=== PATIENT | male | born 1980 | race African-American/Black ===

== ENCOUNTER 2017-11-14 19:12 | Emergency (ER) | payer OTHER, SELFPAY ==
--- NOTE | 2017-11-14 21:33 | ER ---
Nurse's Notes [facility] Name: Avila Marshall Age: 37 yrs Sex: Male : 1980 Arrival Date: 11/14/2017 Time: 19:15 Bed 16 Private MD: Diagnosis: Hiccough Presentation: 11/14 19:29 Presenting complaint: Patient states: Hiccups for 4 days. Transition of care: patient aj was not received from another setting of care. Onset of symptoms was November 10, 2017. Care prior to arrival: None. 19:29 Method Of Arrival: Ambulatory 19:29 Acuity: JORGE 4 20:19 Initial Sepsis Screen: Does the patient meet any 2 criteria? No. Patient's initial bs1 sepsis screen is negative. Does the patient have a suspected source of infection? No. Patient's initial sepsis screen is negative. Triage Assessment: 19:30 General: Appears in no apparent distress. uncomfortable, Behavior is calm, cooperative, aj appropriate for age. Pain: Denies pain. Neuro: Level of Consciousness is awake, alert, obeys commands, Oriented to person, place, time, situation, Appropriate for age. Respiratory: Airway is patent Respiratory effort is even, unlabored, Respiratory pattern is regular, symmetrical. Derm: Skin is intact, is healthy with good turgor, Skin is pink, warm \T\ dry. normal. Historical: - Allergies: 19:30 No Known Allergies; aj - Home Meds: 19:30 None [Active]; aj - PMHx: 19:30 None; aj - PSHx: 19:30 None; aj - Immunization history:: Adult Immunizations up to date. - Social history:: Smoking status: Patient uses tobacco products, smokes one-half pack cigarettes per day. Screenin:19 Abuse screen: Denies threats or abuse. Denies injuries from another. Nutritional bs1 screening: No deficits noted. Tuberculosis screening: No symptoms or risk factors identified. Fall Risk None identified. Assessment: 20:00 General: Appears in no apparent distress. uncomfortable, Behavior is calm, cooperative, bs1 appropriate for age. Pain: Denies pain. Neuro: Level of Consciousness is awake, alert, obeys commands, Oriented to person, place, time, situation, Appropriate for age Rubber Trimmer are equal bilaterally. Cardiovascular: Denies chest pain, palpitations, shortness of breath, Heart tones S1 S2 present Capillary refill < 3 seconds Patient's skin is warm and dry. Respiratory: Airway is patent Trachea midline Respiratory effort is even, unlabored, Respiratory pattern is regular, symmetrical, Breath sounds are clear bilaterally. GI: Abdomen is round Bowel sounds present X 4 quads. Reports nausea, generalized abdominal pain due to continuous hiccups. : No deficits noted. No signs and/or symptoms were reported regarding the genitourinary system. EENT: No deficits noted. No signs and/or symptoms were reported regarding the EENT system. Derm: Skin is intact, Skin is pink, warm \T\ dry. Musculoskeletal: Circulation, motion, and sensation intact. Capillary refill < 3 seconds, Range of motion: intact in all extremities. 21:00 Reassessment: Patient appears in no apparent distress at this time. No changes from bs1 previously documented assessment. Patient and/or family updated on plan of care and expected duration. Pain level reassessed. Patient is alert, oriented x 3, equal unlabored respirations, skin warm/dry/pink. Reassessment: Patient still c/o continuous hiccups. 22:05 Reassessment: Patient appears in no apparent distress at this time. Patient and/or bs1 family updated on plan of care and expected duration. Pain level reassessed. Patient is alert, oriented x 3, equal unlabored respirations, skin warm/dry/pink. Patient received baclofen/chlopromezine, patient being discharged, informed patient that he will stay for 15 more minutes to assess for any medication reaction prior to discharge. Vital Signs: 19:30 BP 156 / 86; Pulse 86; Resp 22; Temp 97.6; Pulse Ox 99% on R/A; Weight 134.26 kg; aj Height 6 ft. 6 in. (198.12 cm); 20:15 BP 144 / 76; Pulse 79; Resp 15; Pulse Ox 97% on R/A; bs1 21:15 BP 138 / 85; Pulse 86; Resp 16; Pulse Ox 97% on R/A; Pain 0/10; bs1 22:13 BP 140 / 90; Pulse 66; Resp 17; Temp 98(O); Pulse Ox 99% on R/A; bs1 19:30 Body Mass Index 34.21 (134.26 kg, 198.12 cm) ED Course: 19:15 Patient arrived in ED. am2 19:30 Triage completed. aj 19:30 Arm band placed on right wrist. Patient placed in an exam room. aj 20:08 Alecia Fan, RN is Primary Nurse. bs1 20:19 No provider procedures requiring assistance completed. bs1 20:20 Patient has correct armband on for positive identification. Bed in low position. Call bs1 light in reach. Side rails up X 1. Pulse ox on. NIBP on. 20:32 Dom Boyd PA is PHCP. jr8 20:32 Jamison Gamez MD is Attending Physician. jr8 22:14 Patient did not have IV access during this emergency room visit. bs1 Administered Medications: 21:46 Not Given (change in dose): chlorproMAZINE 25 mg PO once fc 22:04 Drug: Baclofen 10 mg Route: PO; bs1 22:15 Follow up: Response: No adverse reaction bs1 22:04 Drug: chlorproMAZINE 30 mg Route: PO; bs1 22:14 Follow up: Response: No adverse reaction bs1 Outcome: 21:33 Discharge ordered by . jr8 22:07 Condition: stable bs1 22:13 Discharged to home ambulatory. bs1 22:13 Discharge instructions given to patient, Instructed on discharge instructions, follow up and referral plans. medication usage, Demonstrated understanding of instructions, follow-up care, medications, Prescriptions given X 1. 22:22 Patient left the ED. bs1 Signatures: Maribell Fang RN RN Dom Boyd PA PA jr8 Maribell Quiroz am Alecia Fan RN RN bs1 Julianne Sheridan RN Corrections: (The following items were deleted from the chart) 19:30 19:29 Acuity: JORGE 5 aj
--- NOTE | 2017-11-14 21:33 | EDPHYS ---
Physician Documentation [facility] Name: Avila Marshall Age: 37 yrs Sex: Male : 1980 Arrival Date: 11/14/2017 Time: 19:15 Bed 16 Private MD: ED Physician Jamison Gamez HPI: 11/14 21:29 This 37 yrs old Black Male presents to ER via Ambulatory with complaints of Hiccups x4 jr8 days. 21:29 Patient stated that he has had persistent hiccups for the past 4 days. Effecting his jr8 sleep and work. Cannot get rid of them . Severity of symptoms: At their worst the symptoms were moderate in the emergency department the symptoms are unchanged. The patient has not experienced similar symptoms in the past. The patient has not recently seen a physician. Historical: - Allergies: 19:30 No Known Allergies; aj - Home Meds: 19:30 None [Active]; aj - PMHx: 19:30 None; aj - PSHx: 19:30 None; aj - Immunization history:: Adult Immunizations up to date. - Social history:: Smoking status: Patient uses tobacco products, smokes one-half pack cigarettes per day. ROS: 21:29 Eyes: Negative for injury, pain, redness, and discharge, ENT: Negative for injury, jr8 pain, and discharge, Neck: Negative for injury, pain, and swelling, Cardiovascular: Negative for chest pain, palpitations, and edema, Respiratory: Negative for shortness of breath, cough, wheezing, and pleuritic chest pain, Abdomen/GI: Negative for abdominal pain, nausea, vomiting, diarrhea, and constipation, Back: Negative for injury and pain, MS/Extremity: Negative for injury and deformity, Skin: Negative for injury, rash, and discoloration, Neuro: Negative for headache, weakness, numbness, tingling, and seizure. Exam: 21:29 Eyes: Pupils equal round and reactive to light, extra-ocular motions intact. Lids and jr8 lashes normal. Conjunctiva and sclera are non-icteric and not injected. Cornea within normal limits. Periorbital areas with no swelling, redness, or edema. ENT: Nares patent. No nasal discharge, no septal abnormalities noted. Tympanic membranes are normal and external auditory canals are clear. Oropharynx with no redness, swelling, or masses, exudates, or evidence of obstruction, uvula midline. Mucous membranes moist. Neck: Trachea midline, no thyromegaly or masses palpated, and no cervical lymphadenopathy. Supple, full range of motion without nuchal rigidity, or vertebral point tenderness. No Meningismus. Cardiovascular: Regular rate and rhythm with a normal S1 and S2. No gallops, murmurs, or rubs. Normal PMI, no JVD. No pulse deficits. Respiratory: Lungs have equal breath sounds bilaterally, clear to auscultation and percussion. No rales, rhonchi or wheezes noted. No increased work of breathing, no retractions or nasal flaring. Abdomen/GI: Soft, non-tender, with normal bowel sounds. No distension or tympany. No guarding or rebound. No evidence of tenderness throughout. Back: No spinal tenderness. No costovertebral tenderness. Full range of motion. Skin: Warm, dry with normal turgor. Normal color with no rashes, no lesions, and no evidence of cellulitis. MS/ Extremity: Pulses equal, no cyanosis. Neurovascular intact. Full, normal range of motion. Neuro: Awake and alert, GCS 15, oriented to person, place, time, and situation. Cranial nerves II-XII grossly intact. Motor strength 5/5 in all extremities. Sensory grossly intact. Cerebellar exam normal. Normal gait. Vital Signs: 19:30 BP 156 / 86; Pulse 86; Resp 22; Temp 97.6; Pulse Ox 99% on R/A; Weight 134.26 kg; aj Height 6 ft. 6 in. (198.12 cm); 20:15 BP 144 / 76; Pulse 79; Resp 15; Pulse Ox 97% on R/A; bs1 21:15 BP 138 / 85; Pulse 86; Resp 16; Pulse Ox 97% on R/A; Pain 0/10; bs1 22:13 BP 140 / 90; Pulse 66; Resp 17; Temp 98(O); Pulse Ox 99% on R/A; bs1 19:30 Body Mass Index 34.21 (134.26 kg, 198.12 cm) aj MDM: 20:32 Patient medically screened. jr8 21:30 Data reviewed: vital signs, nurses notes, and as a result, I will discharge patient. jr8 Data interpreted: Pulse oximetry: on room air is 97 %. Interpretation: normal. Counseling: I had a detailed discussion with the patient and/or guardian regarding: the historical points, exam findings, and any diagnostic results supporting the discharge/admit diagnosis, the need for outpatient follow up, a family practitioner, to return to the emergency department if symptoms worsen or persist or if there are any questions or concerns that arise at home. Administered Medications: 21:46 Not Given (change in dose): chlorproMAZINE 25 mg PO once fc 22:04 Drug: Baclofen 10 mg Route: PO; bs1 22:15 Follow up: Response: No adverse reaction bs1 22:04 Drug: chlorproMAZINE 30 mg Route: PO; bs1 22:14 Follow up: Response: No adverse reaction bs1 Disposition: 11/15 06:39 Co-signature as Attending Physician, Jamison Gamez MD I agree with the assessment and [facility] plan of care. Disposition: 11/14/17 21:33 Discharged to Home. Impression: Hiccough. - Condition is Stable. - Discharge Instructions: Hiccups. - Prescriptions for chlorpromazine 25 mg Oral tablet - take 1 tablet by ORAL route 3 times per day for 5 days; 15 tablet. - Medication Reconciliation Form, Thank You Letter, Antibiotic Education, Prescription Opioid Use form. - Follow up: Private Physician; When: 5 - 6 days; Reason: Recheck today's complaints, Continuance of care, Re-evaluation by your physician. - Problem is new. - Symptoms have improved. Signatures: Maribell Fang RN RN aj Anderson, Corey, MD MD cha Chretien, Felicia, RN RN fc Roszak, Josh, PA PA jr8 Alecia Fan RN RN bs1 Corrections: (The following items were deleted from the chart) 11/14 22:22 21:33 11/14/2017 21:33 Discharged to Home. Impression: Hiccough. Condition is Stable. bs1 Forms are Medication Reconciliation Form, Thank You Letter, Antibiotic Education, Prescription Opioid Use. Follow up: Private Physician; When: 5 - 6 days; Reason: Recheck today's complaints, Continuance of care, Re-evaluation by your physician. Problem is new. Symptoms have improved. jr8
[2017-11-14] MEDS ORDERED: CHLORPROMAZINE 25 MG TAB PO ONE ×2 (21:39→21:45)
[2017-11-14] MEDS ORDERED: CHLORPROMAZINE 10 MG TAB PO ONE (21:39)
[2017-11-14] MEDS ORDERED: BACLOFEN 10 MG TAB ONE (21:57)
== END 2017-11-14 22:22 | disposition home or self-care (01) ==
LOC: ER 19:12
DX: R06.6 Hiccough (principal); F17.210 Nicotine dependence, cigarettes, uncomplicated
CPT/HCPCS: 99283

== ENCOUNTER 2018-08-23 08:41 | Emergency (ER) | payer OTHER, SELFPAY ==
[2018-08-23 09:35] LABS: BUN Blood Urea Nitrogen 12 mg/dL (7-18); Bicarbonate 30 mmol/L (21-32); CKMB Creatine Kinase MB 1.8 ng/mL (0.3-3.6); Creatine Phosphokinase 218 U/L (39-308); Glucose Level 126 mg/dL (74-106); Sodium Level 140 mmol/L (136-145)
--- NOTE | 2018-08-23 10:18 | EDPHYS ---
Physician Documentation [facility] Name: Avila Marshall Age: 38 yrs Sex: Male : 1980 Arrival Date: 08/23/2018 Time: 08:43 Bed 13 Private MD: None, None ED Physician Jamison Gamez HPI: 08/23 10:14 This 38 yrs old Black Male presents to ER via Ambulatory with complaints of Chest Pain. kb 10:15 The patient or guardian reports chest pain that is located primarily in the anterior kb chest wall, left. The pain does not radiate. Associated signs and symptoms: The patient has no apparent associated signs or symptoms. The chest pain is described as aching. Duration: The patient or guardian reports a single episode, that is still ongoing. Modifying factors: The symptoms are alleviated by nothing. the symptoms are aggravated by breathing, cough, movement, palpation of area. Severity of pain: At its worst the pain was moderate in the emergency department the pain is unchanged. The patient has not experienced similar symptoms in the past. The patient has not recently seen a physician. Pt reports chest pain that started Saturday while taking out the trash. States pain is worse with inspiration, cough and movement. Denies shortness of breath, cough, nausea, fever or any other symptoms. . Historical: - Allergies: 08:53 No Known Allergies; hb - Home Meds: 08:53 None [Active]; hb - PMHx: 08:53 None; hb - PSHx: 08:53 Shoulder - LEFT; hb - Immunization history:: Adult Immunizations up to date. - Social history:: Smoking status: Patient uses tobacco products, smokes one-half pack cigarettes per day. - Ebola Screening: : No symptoms or risks identified at this time. ROS: 10:13 Constitutional: Negative for fever, chills, and weight loss, ENT: Negative for injury, kb pain, and discharge, Neck: Negative for injury, pain, and swelling, Respiratory: Negative for shortness of breath, cough, wheezing, and pleuritic chest pain, Abdomen/GI: Negative for abdominal pain, nausea, vomiting, diarrhea, and constipation, Back: Negative for injury and pain, : Negative for injury, bleeding, discharge, and swelling, MS/Extremity: Negative for injury and deformity, Skin: Negative for injury, rash, and discoloration, Neuro: Negative for headache, weakness, numbness, tingling, and seizure. 10:13 Cardiovascular: Positive for chest pain, with cough, with movement, of the left breast. Exam: 10:13 Constitutional: This is a well developed, well nourished patient who is awake, alert, kb and in no acute distress. Head/Face: Normocephalic, atraumatic. ENT: Nares patent. No nasal discharge, no septal abnormalities noted. Tympanic membranes are normal and external auditory canals are clear. Oropharynx with no redness, swelling, or masses, exudates, or evidence of obstruction, uvula midline. Mucous membranes moist. Neck: Trachea midline, no thyromegaly or masses palpated, and no cervical lymphadenopathy. Supple, full range of motion without nuchal rigidity, or vertebral point tenderness. No Meningismus. Cardiovascular: Regular rate and rhythm with a normal S1 and S2. No gallops, murmurs, or rubs. Normal PMI, no JVD. No pulse deficits. Respiratory: Lungs have equal breath sounds bilaterally, clear to auscultation and percussion. No rales, rhonchi or wheezes noted. No increased work of breathing, no retractions or nasal flaring. Abdomen/GI: Soft, non-tender, with normal bowel sounds. No distension or tympany. No guarding or rebound. No evidence of tenderness throughout. Skin: Warm, dry with normal turgor. Normal color with no rashes, no lesions, and no evidence of cellulitis. MS/ Extremity: Pulses equal, no cyanosis. Neurovascular intact. Full, normal range of motion. Neuro: Awake and alert, GCS 15, oriented to person, place, time, and situation. Cranial nerves II-XII grossly intact. Motor strength 5/5 in all extremities. Sensory grossly intact. Cerebellar exam normal. Normal gait. 10:13 Chest/axilla: Inspection: normal, Palpation: tenderness, that is mild, of the left breast. Vital Signs: 08:53 BP 125 / 84; Pulse 77; Resp 16; Temp 98.1; Pulse Ox 99% on R/A; Pain 7/10; hb 09:53 BP 122 / 80; Pulse 81; Resp 18; Pulse Ox 98% on R/A; rb1 10:25 BP 127 / 80; Pulse 79; Resp 17; Pulse Ox 97% on R/A; Pain 5/10; rb1 MDM: 08:48 Patient medically screened. kb 10:14 Data reviewed: vital signs, nurses notes. Data interpreted: Pulse oximetry: on room air kb is 98 %. Interpretation: normal. 10:17 Counseling: I had a detailed discussion with the patient and/or guardian regarding: the kb historical points, exam findings, and any diagnostic results supporting the discharge/admit diagnosis, lab results, radiology results, the need for outpatient follow up, a family practitioner, to return to the emergency department if symptoms worsen or persist or if there are any questions or concerns that arise at home. 08/23 08:51 Order name: Troponin (emerg Dept Use Only); Complete Time: 09:39 kb 08/23 08:51 Order name: D-Dimer; Complete Time: 09:29 kb 08/23 08:51 Order name: Chest Pa And Lat (2 Views) XRAY kb 08/23 09:02 Order name: Basic Metabolic Panel; Complete Time: 09:39 kb 08/23 09:02 Order name: Ckmb; Complete Time: 09:39 kb 08/23 09:02 Order name: CPK; Complete Time: 09:39 kb 08/23 08:51 Order name: EKG; Complete Time: 08:52 kb 08/23 08:51 Order name: EKG - Nurse/Tech; Complete Time: 09:08 kb Administered Medications: 10:11 Drug: TORadol 30 mg Route: IVP; Site: right antecubital; rb1 10:24 Follow up: Response: No adverse reaction rb1 Disposition: 08/23/18 10:17 Discharged to Home. Impression: Chest pain, unspecified. - Condition is Stable. - Discharge Instructions: Chest Wall Pain, [id number]. - Prescriptions for Cyclobenzaprine 10 mg Oral Tablet - take 1 tablet by ORAL route every 8 hours As needed; 21 tablet. Diclofenac Sodium 75 mg Oral Tablet, Delayed Release (E.C.) - take 1 tablet by ORAL route 2 times per day As needed; 30 tablet. - Medication Reconciliation Form, Thank You Letter, Antibiotic Education, Prescription Opioid Use form. - Follow up: Emergency Department; When: As needed; Reason: Worsening of condition. Follow up: Private Physician; When: 2 - 3 days; Reason: Recheck today's complaints, Continuance of care, Re-evaluation by your physician. Addendum: 08/25/2018 07:30 Co-signature as Attending Physician, Jamison Gamez MD I agree with the assessment and c [facility] plan of care. Signatures: Dispatcher [employer] EDMS Joanie Aguilar, SOCIAL WORKER HEALTH SERVICES-C [place]-Jamison Mayen MD MD cha Barber, Rebecca, RN RN rb1 Mickie Last RN RN Corrections: (The following items were deleted from the chart) 08/23 10:26 10:17 08/23/2018 10:17 Discharged to Home. Impression: Chest pain, unspecified. rb1 Condition is Stable. Forms are Medication Reconciliation Form, Thank You Letter, Antibiotic Education, Prescription Opioid Use. Follow up: Emergency Department; When: As needed; Reason: Worsening of condition. Follow up: Private Physician; When: 2 - 3 days; Reason: Recheck today's complaints, Continuance of care, Re-evaluation by your physician. kb
--- NOTE | 2018-08-23 10:18 | ER ---
Nurse's Notes [facility] Name: Avila Marshall Age: 38 yrs Sex: Male : 1980 Arrival Date: 08/23/2018 Time: 08:43 Bed 13 Private MD: None, None Diagnosis: Chest pain, unspecified Presentation: 08/23 08:52 Presenting complaint: left sided chest pain after working out 6 days ago. Pain is worse hb with inspiration, relieved by raising arm over head. Denies SOB/nausea/cough. Transition of care: patient was not received from another setting of care. Onset of symptoms was August 18, 2018. Risk Assessment: Do you want to hurt yourself or someone else? Patient reports no desire to harm self or others. Initial Sepsis Screen: Does the patient meet any 2 criteria? No. Patient's initial sepsis screen is negative. Does the patient have a suspected source of infection? No. Patient's initial sepsis screen is negative. Care prior to arrival: None. 08:52 Method Of Arrival: Ambulatory hb 08:52 Acuity: JORGE 3 hb Historical: - Allergies: 08:53 No Known Allergies; hb - Home Meds: 08:53 None [Active]; hb - PMHx: 08:53 None; hb - PSHx: 08:53 Shoulder - LEFT; hb - Immunization history:: Adult Immunizations up to date. - Social history:: Smoking status: Patient uses tobacco products, smokes one-half pack cigarettes per day. - Ebola Screening: : No symptoms or risks identified at this time. Screenin:54 Abuse screen: Denies threats or abuse. Denies injuries from another. Nutritional hb screening: No deficits noted. Tuberculosis screening: No symptoms or risk factors identified. Fall Risk None identified. Assessment: 08:47 General: Appears in no apparent distress. comfortable, Behavior is calm, cooperative. rb1 Pain: Complains of pain in anterior aspect of left upper chest Pain does not radiate. Pain currently is 3 out of 10 on a pain scale. Pain began Saturday. Neuro: Level of Consciousness is awake, alert, obeys commands, Oriented to person, place, time, situation. Cardiovascular: Capillary refill < 3 seconds is brisk in bilateral fingers. Respiratory: Airway is patent Respiratory effort is even, unlabored, Respiratory pattern is regular, symmetrical. GI: No signs and/or symptoms were reported involving the gastrointestinal system. : No signs and/or symptoms were reported regarding the genitourinary system. Derm: Skin is dry, Skin is normal, Skin temperature is warm. Musculoskeletal: Range of motion: intact in all extremities. 09:45 Reassessment: Patient appears in no apparent distress at this time. No changes from rb1 previously documented assessment. 10:24 Reassessment: Patient appears in no apparent distress at this time. Patient and/or rb1 family updated on plan of care and expected duration. Pain level reassessed. Patient is alert, oriented x 3, equal unlabored respirations, skin warm/dry/pink. Vital Signs: 08:53 BP 125 / 84; Pulse 77; Resp 16; Temp 98.1; Pulse Ox 99% on R/A; Pain 7/10; hb 09:53 BP 122 / 80; Pulse 81; Resp 18; Pulse Ox 98% on R/A; rb1 10:25 BP 127 / 80; Pulse 79; Resp 17; Pulse Ox 97% on R/A; Pain 5/10; rb1 ED Course: 08:43 Patient arrived in ED. mr 08:43 None, None is Private Physician. mr 08:47 Joanie Aguilar FNP-C is [facility]. kb 08:47 Jamison Gamez MD is Attending Physician. kb 08:47 Patient has correct armband on for positive identification. Bed in low position. Call rb1 light in reach. Side rails up X 1. hall monitor on. Pulse ox on. NIBP on. 08:47 Patient maintains SpO2 saturation greater than 95% on room air. rb1 08:53 Triage completed. hb 08:54 Arm band placed on. hb 09:03 Inserted saline lock: 22 gauge in right antecubital area, using aseptic technique. rb1 Blood collected. 09:08 EKG done, by ED staff, reviewed by Joanie GORE. dh3 09:10 Vickie Grullon, RN is Primary Nurse. rb1 09:24 Chest Pa And Lat (2 Views) XRAY In Process Unspecified. EDMS 10:25 No provider procedures requiring assistance completed. IV discontinued, intact, rb1 bleeding controlled, No redness/swelling at site. Pressure dressing applied. Administered Medications: 10:11 Drug: TORadol 30 mg Route: IVP; Site: right antecubital; rb1 10:24 Follow up: Response: No adverse reaction rb1 Outcome: 10:17 Discharge ordered by MD. roman 10:25 Discharged to home ambulatory. rb1 10:25 Condition: stable 10:25 Discharge instructions given to patient, Instructed on discharge instructions, follow up and referral plans. medication usage, Demonstrated understanding of instructions, follow-up care, medications, Prescriptions given X 2. 10:26 Patient left the ED. rb1 Signatures: Dispatcher [employer] EDHI Joanie Aguilar, NUT PROCESSING SUPERVISOR-C NUT PROCESSING SUPERVISOR-Viky Artis Rebecca, RN RN rb1 Mickie Last RN RN Kym Rendon [facility]
[2018-08-23] MEDS ORDERED: KETOROLAC 30 MG/ML INJ ONE (10:19)
--- NOTE | 2018-08-23 10:27 | RAD REPORT ---
EXAM DESCRIPTION: RAD - Chest Pa And Lat (2 Views) - 08/23/2018 9:24 am CLINICAL HISTORY: CHEST PAIN Chest pain. COMPARISON: No comparisons FINDINGS: The lungs are clear. The heart is normal in size. No displaced fractures. IMPRESSION: No acute or concerning finding suspected.
--- NOTE | 2018-08-23 18:32 | EKG ---
Test Date: 2018-08-23 Test Time: 08:57:50 Spud Driller: MICKEY MEASUREMENT RESULTS: Intervals: Rate: 79 MO: 164 QRSD: 86 QT: 362 QTc: 415 [place]: P: 63 MO: 164 QRS: 73 T: 47 INTERPRETIVE STATEMENTS: Normal sinus rhythm Possible Left atrial enlargement Nonspecific ST and T wave abnormality Abnormal ECG No previous ECG available for comparison Electronically Signed On 08-23-18 18:31:18 BUSINESS TRAVEL CONSULTANT by Vito Coats
== END 2018-08-23 10:26 | disposition home or self-care (01) ==
LOC: ER 08:41
DX: R07.9 Chest pain, unspecified (principal)
CPT/HCPCS: 36415; 71046; 80048; 82550; 82553; 84484; 85379; 93005; 96374; 99285

== ENCOUNTER 2019-02-04 17:11 | Emergency (ER) | payer SELFPAY ==
[2019-02-04 17:56] LABS: Absolute Lymphocytes (CBC) 2.8 K/uL (0.7-4.9); Basophils % 0.9 % (0-1.3); Hematocrit 48.6 % (39.6-49.0); MPV 9.3 fL (7.6-11.3)
[2019-02-04 18:20] LABS: Potassium 3.8 mmol/L (3.5-5.1)
--- NOTE | 2019-02-04 19:07 | RAD REPORT ---
EXAM DESCRIPTION: CT - Abdomen Pelvis W Contrast - 02/04/2019 6:35 pm CLINICAL HISTORY: Abdominal pain with rectal bleeding COMPARISON: none. TECHNIQUE: Computed axial tomography of the abdomen pelvis was obtained. 100 cc Isovue-300 was admin istered intravenously. Oral contrast was not requested which limits evaluation of bowel. All CT scans are performed using dose optimization technique as appropriate and may include automated exposure control or mA/KV adjustment according to patient size. FINDINGS: Mild hepatomegaly. Fatty infiltration of liver. Spleen, pancreas, adrenal and kidneys appear unremarkable. There is no evidence of diverticulitis. No evidence of colitis normal appendix Small inguinal hernias contain fat IMPRESSION: Mild hepatomegaly with fatty infiltration.
--- NOTE | 2019-02-04 19:13 | ER ---
Nurse's Notes [facility] Name: Avila Marshall Age: 38 yrs Sex: Male : 1980 Arrival Date: 02/04/2019 Time: 17:13 Bed 14 Private MD: Diagnosis: Gastrointestinal hemorrhage, unspecified-Rectal bleeding Presentation: 02/04 17:15 Presenting complaint: Patient states: Bright red rectal bleeding when having a BM for 1 aj month. Patient reports feeling "a bump" on his rectum. Transition of care: patient was not received from another setting of care. Onset of symptoms was January 05, 2019. Risk Assessment: Do you want to hurt yourself or someone else? Patient reports no desire to harm self or others. Initial Sepsis Screen: Does the patient meet any 2 criteria? No. Patient's initial sepsis screen is negative. Does the patient have a suspected source of infection? No. Patient's initial sepsis screen is negative. Care prior to arrival: None. 17:15 Method Of Arrival: Ambulatory aj 17:15 Acuity: JORGE 3 ss Triage Assessment: 17:16 General: Appears in no apparent distress. comfortable, Behavior is calm, cooperative, aj appropriate for age. Pain: Denies pain. Neuro: Level of Consciousness is awake, alert, obeys commands, Oriented to person, place, time, situation, Appropriate for age. Respiratory: Airway is patent Respiratory effort is even, unlabored, Respiratory pattern is regular, symmetrical. GI: Reports rectal bleeding. Derm: Skin is intact, is healthy with good turgor, Skin is pink, warm \\T\\ dry. normal. Historical: - Allergies: 17:16 No Known Allergies; aj - Immunization history:: Adult Immunizations up to date. - Social history:: Smoking status: Patient/guardian denies using tobacco. - Ebola Screening: : Patient negative for fever greater than or equal to 101.5 degrees Fahrenheit, and additional compatible Ebola Virus Disease symptoms Patient denies exposure to infectious person Patient denies travel to an Ebola-affected area in the 21 days before illness onset No symptoms or risks identified at this time. Screenin:24 Abuse screen: Denies threats or abuse. Denies injuries from another. Nutritional ss screening: No deficits noted. Tuberculosis screening: Never had TB. Fall Risk None identified. Assessment: 19:24 Reassessment: Patient appears in no apparent distress at this time. Patient and/or ss family updated on plan of care and expected duration. Pain level reassessed. Patient is alert, oriented x 3, equal unlabored respirations, skin warm/dry/pink. Vital Signs: 17:16 BP 158 / 106; Pulse 99; Resp 20; Temp 98.4; Pulse Ox 98% on R/A; Weight 135.17 kg; Height 6 ft. 6 in. (198.12 cm); 17:16 Body Mass Index 34.44 (135.17 kg, 198.12 cm) ED Course: 17:13 Patient arrived in ED. as 17:16 Triage completed. 17:16 Arm band placed on left wrist. Patient placed in an exam room. 17:20 Jordan High is Primary Nurse. 17:28 Dom Boyd PA is PHCP. jr8 17:28 Jamison Gamez MD is Attending Physician. [facility] 17:48 Initial lab(s) drawn, by co, sent to lab. Inserted saline lock: 20 gauge in right [facility] antecubital area, using aseptic technique. Blood collected. 18:03 Radiology exam delayed due to lab results not completed at this time. (BUN/Creatinine). nv 18:35 CT Abd/Pelvis - IV Contrast Only In Process Unspecified. EDMS 19:00 Patient has correct armband on for positive identification. Bed in low position. Call ss light in reach. 19:12 Marcos Wilder MD is Referral Physician. jr8 19:24 No provider procedures requiring assistance completed. IV discontinued, intact, ss bleeding controlled, No redness/swelling at site. Pressure dressing applied. Administered Medications: No medications were administered Outcome: 19:13 Discharge ordered by . jr8 19:24 Discharged to home ambulatory. 19:24 Condition: good 19:24 Discharge instructions given to patient, Instructed on discharge instructions, follow up and referral plans. medication usage, Demonstrated understanding of instructions, follow-up care, medications, Prescriptions given X 1. 19:25 Patient left the ED. Signatures: Dispatcher [employer] EDAK Maribell Fang RN RN Frances Rice Shelby, RN RN Dom Boyd PA PA jr8 Larry Bray [facility] High Corrections: (The following items were deleted from the chart) 19:11 17:15 Acuity: JORGE 4 aj ss
--- NOTE | 2019-02-04 19:14 | EDPHYS ---
Physician Documentation [facility] Name: Avila Marshall Age: 38 yrs Sex: Male : 1980 Arrival Date: 02/04/2019 Time: 17:13 Bed 14 Private MD: ED Physician Jamison Gamez HPI: 02/04 17:36 This 38 yrs old Black Male presents to ER via Ambulatory with complaints of Rectal jr8 Bleeding. 17:36 The patient presents to the emergency department with bleeding from the rectum/anus, jr8 that is mild. Onset: The symptoms/episode began/occurred gradually, 2 week(s) ago. Context: the patient has no known special context relating to the rectal area complaint(s). Modifying factors: The symptoms are alleviated by nothing, The symptoms are aggravated by bowel movement. Associate signs and symptoms: Pertinent positives: abdominal pain in the right upper quadrant and left upper quadrant. The patient has experienced a previous episode, used preparation H and made it go away. The patient has not recently seen a physician. Historical: - Allergies: 17:16 No Known Allergies; aj - Immunization history:: Adult Immunizations up to date. - Social history:: Smoking status: Patient/guardian denies using tobacco. - Ebola Screening: : Patient negative for fever greater than or equal to 101.5 degrees Fahrenheit, and additional compatible Ebola Virus Disease symptoms Patient denies exposure to infectious person Patient denies travel to an Ebola-affected area in the 21 days before illness onset No symptoms or risks identified at this time. ROS: 17:36 Eyes: Negative for injury, pain, redness, and discharge, ENT: Negative for injury, jr8 pain, and discharge, Neck: Negative for injury, pain, and swelling, Cardiovascular: Negative for chest pain, palpitations, and edema, Respiratory: Negative for shortness of breath, cough, wheezing, and pleuritic chest pain, Back: Negative for injury and pain, MS/Extremity: Negative for injury and deformity, Skin: Negative for injury, rash, and discoloration, Neuro: Negative for headache, weakness, numbness, tingling, and seizure. 17:36 Abdomen/GI: Positive for abdominal pain, rectal bleeding, Negative for nausea, vomiting, and diarrhea, abdominal cramps, abdominal distension, anorexia, dysphagia, hematemesis, black/tarry stool, rectal pain, bowel incontinence, flatulence. Exam: 17:36 Eyes: Pupils equal round and reactive to light, extra-ocular motions intact. Lids and jr8 lashes normal. Conjunctiva and sclera are non-icteric and not injected. Cornea within normal limits. Periorbital areas with no swelling, redness, or edema. ENT: Nares patent. No nasal discharge, no septal abnormalities noted. Tympanic membranes are normal and external auditory canals are clear. Oropharynx with no redness, swelling, or masses, exudates, or evidence of obstruction, uvula midline. Mucous membranes moist. Neck: Trachea midline, no thyromegaly or masses palpated, and no cervical lymphadenopathy. Supple, full range of motion without nuchal rigidity, or vertebral point tenderness. No Meningismus. Cardiovascular: Regular rate and rhythm with a normal S1 and S2. No gallops, murmurs, or rubs. Normal PMI, no JVD. No pulse deficits. Respiratory: Lungs have equal breath sounds bilaterally, clear to auscultation and percussion. No rales, rhonchi or wheezes noted. No increased work of breathing, no retractions or nasal flaring. Back: No spinal tenderness. No costovertebral tenderness. Full range of motion. Skin: Warm, dry with normal turgor. Normal color with no rashes, no lesions, and no evidence of cellulitis. MS/ Extremity: Pulses equal, no cyanosis. Neurovascular intact. Full, normal range of motion. Neuro: Awake and alert, GCS 15, oriented to person, place, time, and situation. Cranial nerves II-XII grossly intact. Motor strength 5/5 in all extremities. Sensory grossly intact. Cerebellar exam normal. Normal gait. 17:36 Abdomen/GI: Inspection: abdomen appears normal, Bowel sounds: active, all quadrants, Palpation: abdomen is soft and non-tender, in all quadrants, Rectal exam: Prostate: normal, rectal tone normal, Stool: brown, guaiac positive, hemorrhoid(s), are not appreciated, mass, is not appreciated, swelling, is not appreciated, tenderness, is not appreciated, Indicators: McBurney's point is not tender, Sandoval's sign is negative, Rovsing's sign is negative, Liver: tenderness, is not appreciated. Vital Signs: 17:16 BP 158 / 106; Pulse 99; Resp 20; Temp 98.4; Pulse Ox 98% on R/A; Weight 135.17 kg; aj Height 6 ft. 6 in. (198.12 cm); 17:16 Body Mass Index 34.44 (135.17 kg, 198.12 cm) aj MDM: 17:28 Patient medically screened. jr8 19:10 Data reviewed: vital signs, nurses notes, lab test result(s), radiologic studies, CT jr8 scan. Data interpreted: Pulse oximetry: on room air is 98 %. Interpretation: normal. Counseling: I had a detailed discussion with the patient and/or guardian regarding: the historical points, exam findings, and any diagnostic results supporting the discharge/admit diagnosis, lab results, radiology results, the need for outpatient follow up, a twister tender, to return to the emergency department if symptoms worsen or persist or if there are any questions or concerns that arise at home. Special discussion: Based on the patient's Hx, exam, and Dx evaluation, there is no indication for emergent surgery or inpatient Tx. It is understood by the patient/guardian that if the Sx's persist or worsen they need to return immediately for re-evaluation. ED course: Discussed with patient that he needs to f/u with GI for either colonoscopy or rough sigmoidoscopy . 02/04 17:36 Order name: CBC with Diff; Complete Time: 18:15 8 02/04 17:36 Order name: Basic Metabolic Panel; Complete Time: 18:21 8 02/04 17:36 Order name: IV; Complete Time: 17:47 8 02/04 17:36 Order name: CT Abd/Pelvis - IV Contrast Only; Complete Time: 19:10 jr8 Administered Medications: No medications were administered Disposition: 02/05 09:13 Co-signature as Attending Physician, Jamison Gamez MD I agree with the assessment and kathleen plan of care. Disposition: 02/04/19 19:13 Discharged to Home. Impression: Gastrointestinal hemorrhage, unspecified - Rectal bleeding . - Condition is Stable. - Discharge Instructions: Gastrointestinal Bleeding, Rectal Bleeding. - Prescriptions for Anusol- HC 25 mg Rectal Suppository - insert 1 suppository by RECTAL route every 12 hours As needed; 20 suppository. - Medication Reconciliation Form, Thank You Letter, Antibiotic Education, Prescription Opioid Use form. - Follow up: Marcos Wilder MD; When: 2 - 3 days; Reason: Recheck today's complaints, Continuance of care, Re-evaluation by your physician. - Problem is new. - Symptoms have improved. Signatures: Dispatcher [employer] EDMaribell Bright, RN RN Jamison Banegas MD MD cha Smirch, Shelby, RN RN ss Dom Boyd, DOMENIC PA jr8 Corrections: (The following items were deleted from the chart) 02/04 19:25 19:13 02/04/2019 19:13 Discharged to Home. Impression: Gastrointestinal hemorrhage, ss unspecified - Rectal bleeding . Condition is Stable. Forms are Medication Reconciliation Form, Thank You Letter, Antibiotic Education, Prescription Opioid Use. Follow up: Marcos Wilder; When: 2 - 3 days; Reason: Recheck today's complaints, Continuance of care, Re-evaluation by your physician. Problem is new. Symptoms have improved. jr8
== END 2019-02-04 19:25 | disposition home or self-care (01) ==
LOC: ER 17:11
DX: K92.2 Gastrointestinal hemorrhage, unspecified (principal)
CPT/HCPCS: 36415; 74177; 80048; 85025; 99284; Q9967

== ENCOUNTER 2021-02-14 12:53 | Emergency (ER) | payer OTHER ==
[2021-02-14 14:26] LABS: Absolute Lymphocytes (CBC) 2.6 K/uL (0.7-4.9); Basophils % 1.1 % (0-1.3); Hematocrit 47.4 % (39.6-49.0); Lymphocytes % 42.8 % (15.3-44.8); MPV 8.9 fL (7.6-11.3); RBC Red Blood Cell Count 5.77 M/uL (4.33-5.43)
[2021-02-14 14:27] LABS: Protime INR 1.08
--- NOTE | 2021-02-14 14:28 | RAD REPORT ---
EXAM DESCRIPTION: RAD - Chest Single View - 02/14/2021 2:20 pm CLINICAL HISTORY: CHEST PAIN COMPARISON: Chest Pa And Lat (2 Views) dated 08/23/2018 FINDINGS: No evidence of edema or pneumonia. The heart size is within normal limits.No acute osseous abnormality. No significant pleural effusions or pneumothorax. IMPRESSION: No acute cardiopulmonary disease.
[2021-02-14] MEDS ORDERED: LORazepam 2 MG/ML VIAL ONE (14:41)
[2021-02-14] MEDS ORDERED: NA CHLORIDE 0.9% 1,000 ML ONE ×2 (14:42→17:02)
[2021-02-14 14:54] LABS: ALT/SGPT 41 U/L (12-78); AST/SGOT 18 U/L (15-37); Albumin 4.5 g/dL (3.4-5.0); Alkaline Phosphatase 90 U/L (45-117); BUN Blood Urea Nitrogen 6 mg/dL (7-18); Bicarbonate 23 mmol/L (21-32); Bilirubin Direct 0.1 mg/dL (0-0.2); Bilirubin Total 0.6 mg/dL (0.2-1.0); Glucose Level 117 mg/dL (74-106); Magnesium 2.4 mg/dL (1.8-2.4); NT PRO-BNP 16 pg/mL (<125); Potassium 3.7 mmol/L (3.5-5.1); Protein, Total 8.9 g/dL (6.4-8.2); Sodium Level 140 mmol/L (136-145); Troponin (Emerg Dept Use Only) < 0.02 ng/mL (0.0-0.045)
[2021-02-14] MEDS ORDERED: METOPROLOL TARTRATE 5 MG/5 ML INJ IV ONE (18:09)
--- NOTE | 2021-02-14 18:27 | ER ---
Nurse's Notes [facility] Name: Avila Marshall Age: 40 yrs Sex: Male : 1980 Arrival Date: 02/14/2021 Time: 12:55 Bed Treatment Private MD: Diagnosis: Cocaine abuse;Dehydration;Alcohol abuse Presentation: 02/14 13:53 Chief complaint: Patient states: Intermittent left sided chest pain, radiates to left jl7 arm since this morning at 0900. Reports drinking, smoking a lot of cigarettes and doing cocaine last night. Coronavirus screen: Client denies travel out of the [place] in the last 14 days. At this time, the client does not indicate any symptoms associated with coronavirus-19. Ebola Screen: No symptoms or risks identified at this time. Initial Sepsis Screen: Does the patient meet any 2 criteria? No. Patient's initial sepsis screen is negative. Does the patient have a suspected source of infection? No. Patient's initial sepsis screen is negative. Risk Assessment: Do you want to hurt yourself or someone else? Patient reports no desire to harm self or others. Onset of symptoms was February 14, 2021 at 09:00. 13:53 Method Of Arrival: Ambulatory jl7 13:53 Acuity: JORGE 2 jl7 Historical: - Allergies: 13:55 SHELLFISH; jl7 - Home Meds: 13:55 Lisinopril Oral [Active]; jl7 - PMHx: 13:55 Hypertensive disorder; jl7 - PSHx: 13:55 left shoulder; jl7 - Immunization history:: Client reports receiving the 2nd dose of the Covid vaccine, Date received: October 2020 [employer]. - Social history:: Smoking status: Patient reports the use of cigarette tobacco products. Screenin:35 Abuse screen: Denies threats or abuse. Denies injuries from another. Nutritional iw screening: No deficits noted. Tuberculosis screening: No symptoms or risk factors identified. Fall Risk None identified. Assessment: 14:01 Reassessment: Dr. Gracia gave VO for cardiac workup, 1000 mL NS bolus and 1 mg Ativan jl7 IVP. 15:35 Reassessment: Patient appears in no apparent distress at this time. Patient and/or iw family updated on plan of care and expected duration. Pain level reassessed. Patient is alert, oriented x 3, equal unlabored respirations, skin warm/dry/pink. Vital Signs: 13:53 BP 142 / 109; Pulse 129; Resp 17 S; Temp 98.1; Pulse Ox 100% on R/A; Weight 134.72 kg; jl7 Height 6 ft. 6 in. (198.12 cm); Pain 6/10; 15:35 BP 143 / 90; Pulse 113; Resp 18 S; Pulse Ox 98% on R/A; iw 18:50 BP 138 / 78; Pulse 105; Resp 16; Pulse Ox 98% on R/A; iw 13:53 Body Mass Index 34.32 (134.72 kg, 198.12 cm) jl7 ED Course: 12:55 Patient arrived in ED. mr 13:55 Triage completed. jl7 13:55 Arm band placed on right wrist. Patient placed in waiting room, Patient notified of jl7 wait time. 14:03 Dom Boyd PA is PHCP. jr8 14:03 Marbella Gracia is Attending Physician. jr8 14:10 Initial lab(s) drawn, by me, sent to lab. Inserted saline lock: 20 gauge in left dh3 antecubital area, using aseptic technique. Blood collected. 14:13 Charo Mosher, RN is Primary Nurse. iw 14:20 XRAY Chest (1 view) In Process Unspecified. EDMS Administered Medications: 14:26 Drug: NS 0.9% 1000 ml Route: IV; Rate: 1 bolus; Site: left antecubital; iw 15:30 Follow up: IV Status: Completed infusion iw 14:26 Drug: Ativan (LORazepam) 1 mg Route: IVP; Site: left antecubital; iw 15:00 Follow up: Response: No adverse reaction iw 16:43 Drug: NS 0.9% 1000 ml Route: IV; Rate: 1000 ml; Site: left antecubital; iw 17:45 Follow up: IV Status: Completed infusion iw 16:43 Drug: Ativan (LORazepam) 1 mg Route: IVP; Site: left antecubital; iw 17:10 Follow up: Response: No adverse reaction iw 17:48 Drug: Metoprolol 5 mg Route: IVP; Site: left antecubital; iw 18:00 Follow up: Response: No adverse reaction iw Outcome: 18:27 Discharge ordered by . jr8 18:49 Patient left the ED. iw 18:49 Discharged to home ambulatory. iw 18:49 Condition: good 18:49 Discharge instructions given to patient, Instructed on discharge instructions, follow up and referral plans. Demonstrated understanding of instructions, follow-up care. Signatures: Dispatcher [employer] FREDERIC MattViky Charo Mosher, RN RN iw Dom Boyd PA PA jr8 Skye Birmingham RN RN jl7 [facility]
--- NOTE | 2021-02-14 18:28 | EDPHYS ---
Physician Documentation [facility] Name: Avila Marshall Age: 40 yrs Sex: Male : 1980 Arrival Date: 02/14/2021 Time: 12:55 Bed Treatment Private MD: ED Physician Marbella Gracia HPI: 02/14 15:18 This 40 yrs old Black Male presents to ER via Ambulatory with complaints of Chest Pain, jr8 Arm Pain. 15:18 The patient or guardian reports chest pain that is located primarily in the substernal jr8 area. Onset: acutely, today. The pain radiates to the left arm. Associated signs and symptoms: Pertinent positives: palpitations. The chest pain is described as sharp. Duration: The patient or guardian reports a single episode. Severity of pain: At its worst the pain was moderate in the emergency department the pain is unchanged. The patient has not experienced similar symptoms in the past. The patient has not recently seen a physician. Patient stated that he recently utilized cocaine, cigarettes, alcohol. Stated that he has had numbness down the left arm and leg and some chest tightness since then.. Historical: - Allergies: 13:55 SHELLFISH; jl7 - Home Meds: 13:55 Lisinopril Oral [Active]; jl7 - PMHx: 13:55 Hypertensive disorder; jl7 - PSHx: 13:55 left shoulder; jl7 - Immunization history:: Client reports receiving the 2nd dose of the Covid vaccine, Date received: October 2020 Algolux. - Social history:: Smoking status: Patient reports the use of cigarette tobacco products. ROS: 15:18 Eyes: Negative for injury, pain, redness, and discharge, ENT: Negative for injury, jr8 pain, and discharge, Neck: Negative for injury, pain, and swelling, Respiratory: Negative for shortness of breath, cough, wheezing, and pleuritic chest pain, Abdomen/GI: Negative for abdominal pain, nausea, vomiting, diarrhea, and constipation, Back: Negative for injury and pain, MS/Extremity: Negative for injury and deformity, Skin: Negative for injury, rash, and discoloration. 15:18 Cardiovascular: Positive for chest pain, palpitations. 15:18 Neuro: Positive for numbness. Exam: 15:18 Eyes: Pupils equal round and reactive to light, extra-ocular motions intact. Lids and jr8 lashes normal. Conjunctiva and sclera are non-icteric and not injected. Cornea within normal limits. Periorbital areas with no swelling, redness, or edema. ENT: Nares patent. No nasal discharge, no septal abnormalities noted. Tympanic membranes are normal and external auditory canals are clear. Oropharynx with no redness, swelling, or masses, exudates, or evidence of obstruction, uvula midline. Mucous membranes moist. Neck: Trachea midline, no thyromegaly or masses palpated, and no cervical lymphadenopathy. Supple, full range of motion without nuchal rigidity, or vertebral point tenderness. No Meningismus. Cardiovascular: Tachycardic with a normal S1 and S2. No gallops, murmurs, or rubs. Normal PMI, no JVD. No pulse deficits. Respiratory: Lungs have equal breath sounds bilaterally, clear to auscultation and percussion. No rales, rhonchi or wheezes noted. No increased work of breathing, no retractions or nasal flaring. Abdomen/GI: Soft, non-tender, with normal bowel sounds. No distension or tympany. No guarding or rebound. No evidence of tenderness throughout. Back: No spinal tenderness. No costovertebral tenderness. Full range of motion. Skin: Warm, dry with normal turgor. Normal color with no rashes, no lesions, and no evidence of cellulitis. MS/ Extremity: Pulses equal, no cyanosis. Neurovascular intact. Full, normal range of motion. Neuro: Awake and alert, GCS 15, oriented to person, place, time, and situation. Cranial nerves II-XII grossly intact. Motor strength 5/5 in all extremities. Sensory grossly intact. Cerebellar exam normal. Normal gait. Vital Signs: 13:53 BP 142 / 109; Pulse 129; Resp 17 S; Temp 98.1; Pulse Ox 100% on R/A; Weight 134.72 kg; jl7 Height 6 ft. 6 in. (198.12 cm); Pain 6/10; 15:35 BP 143 / 90; Pulse 113; Resp 18 S; Pulse Ox 98% on R/A; iw 18:50 BP 138 / 78; Pulse 105; Resp 16; Pulse Ox 98% on R/A; iw 13:53 Body Mass Index 34.32 (134.72 kg, 198.12 cm) jl7 MDM: 14:03 Patient medically screened. jr8 18:25 Data reviewed: vital signs, nurses notes, lab test result(s), EKG, radiologic studies, jr8 plain films. Data interpreted: Pulse oximetry: on room air is 98 %. Interpretation: normal. Counseling: I had a detailed discussion with the patient and/or guardian regarding: the historical points, exam findings, and any diagnostic results supporting the discharge/admit diagnosis, lab results, radiology results, to return to the emergency department if symptoms worsen or persist or if there are any questions or concerns that arise at home. ED course: Feeling much better now that heart rate and blood pressure are decreased. Patient well-hydrated. Near normal vital signs at this point. No other signs or symptoms present this time. Counseled patient on drug and alcohol abuse along with cigarette use. Patient very receptive to this and requested information on alcohol and Narcotics Anonymous which was given to him. Patient knows to come back if he were to worsen at any point time.. 02/14 14:01 Order name: Basic Metabolic Panel; Complete Time: 15:02/14 14:01 Order name: CBC with Diff; Complete Time: 14:30 02/14 14:01 Order name: LFT's; Complete Time: 15:02/14 14:01 Order name: Magnesium; Complete Time: 15:02/14 14:01 Order name: NT PRO-BNP; Complete Time: 15:02/14 14:01 Order name: PT-INR; Complete Time: 14:30 02/14 14:01 Order name: Troponin (emerg Dept Use Only); Complete Time: 15:01 02/14 14:01 Order name: XRAY Chest (1 view); Complete Time: 14:30 02/14 14:01 Order name: EKG; Complete Time: 14:02 02/14 14:01 Order name: Cardiac monitoring; Complete Time: 14:22 02/14 14:01 Order name: EKG - Nurse/Tech; Complete Time: 14:14 02/14 14:01 Order name: IV Saline Lock; Complete Time: 14:14 02/14 14:01 Order name: Labs collected and sent; Complete Time: 14:02/14 14:01 Order name: O2 Per Protocol; Complete Time: 14:15 7 02/14 14:01 Order name: O2 Sat Monitoring; Complete Time: 14:15 7 02/14 16:43 Order name: Diet Regular; Complete Time: 16:44 iw Administered Medications: 14:26 Drug: NS 0.9% 1000 ml Route: IV; Rate: 1 bolus; Site: left antecubital; iw 15:30 Follow up: IV Status: Completed infusion iw 14:26 Drug: Ativan (LORazepam) 1 mg Route: IVP; Site: left antecubital; iw 15:00 Follow up: Response: No adverse reaction iw 16:43 Drug: NS 0.9% 1000 ml Route: IV; Rate: 1000 ml; Site: left antecubital; iw 17:45 Follow up: IV Status: Completed infusion iw 16:43 Drug: Ativan (LORazepam) 1 mg Route: IVP; Site: left antecubital; iw 17:10 Follow up: Response: No adverse reaction iw 17:48 Drug: Metoprolol 5 mg Route: IVP; Site: left antecubital; iw 18:00 Follow up: Response: No adverse reaction iw Disposition: 18:59 Co-signature as Attending Physician, Marbella Gracia I agree with the assessment and plan sp3 of care. Disposition Summary: 02/14/21 18:27 Discharge Ordered Location: Home jr8 Problem: new jr8 Symptoms: have improved jr8 Condition: Stable jr8 Diagnosis - Cocaine abuse jr8 - Dehydration jr8 - Alcohol abuse jr8 Followup: jr8 - With: Private Physician - When: 2 - 3 days - Reason: Recheck today's complaints, Continuance of care, Re-evaluation by your physician Discharge Instructions: - Discharge Summary Sheet jr8 - Cocaine Use Disorder jr8 - Dehydration, Adult jr8 - Alcohol Abuse and Dependence Information, Adult jr8 Forms: - Medication Reconciliation Form jr8 - Thank You Letter jr8 - Antibiotic Education jr8 - Prescription Opioid Use jr8 Signatures: Dispatcher [employer] Charo Miller, RN RN iw Dom Boyd PA PA jr8 Skye Birmingham RN RN jl7 Marbella Gracia sp3
[2021-02-14 19:18] VITALS: TEMP 98.1
[2021-02-14 19:20] VITALS: BP 143/90; O2SAT 98
--- NOTE | 2021-02-15 16:29 | EKG ---
Test Date: 2021-02-14 Test Time: 13:51:17 Floral Merchandiser: FINN MEASUREMENT RESULTS: Intervals: Rate: 128 WI: 156 QRSD: 82 QT: 298 QTc: 435 Treichlers: P: 73 WI: 156 QRS: 89 T: 37 INTERPRETIVE STATEMENTS: Sinus tachycardia Biatrial enlargement Abnormal ECG Compared to ECG 08/23/2018 08:57:50 Sinus rhythm no longer present ST (T wave) deviation no longer present Electronically Signed On 02-15-21 16:24:19 CDT by Marco Robertson
== END 2021-02-14 18:49 | disposition home or self-care (01) ==
LOC: ER 12:53
DX: F14.10 Cocaine abuse, uncomplicated (principal); F10.10 Alcohol abuse, uncomplicated; E86.0 Dehydration; I10 Essential (primary) hypertension; F17.210 Nicotine dependence, cigarettes, uncomplicated; Z91.013 Allergy to seafood
CPT/HCPCS: 96361; 93005; 85025; 80048; 36415; 83735; 85610; 80076; 84484; 83880; 71045; 96375; 96374; 99284; J7030 ×2

== ENCOUNTER 2021-07-04 12:22 | Emergency (ER) | payer OTHER ==
[2021-07-04] MEDS ORDERED: IBUPROFEN 400 MG TAB ONE (12:54)
--- NOTE | 2021-07-04 14:27 | RAD REPORT ---
EXAM DESCRIPTION: RAD - Chest Single View - 07/04/2021 2:17 pm CLINICAL HISTORY: Cough;Fever COMPARISON: Chest Single View dated 02/14/2021; Chest Pa And Lat (2 Views) dated 08/23/2018 FINDINGS: Lines: None. Lungs: No evidence of edema or pneumonia. Pleural: No significant pleural effusions or pneumothorax. Cardiac: The heart size is within normal limits. Bones: No acute fractures. Other: IMPRESSION: No acute cardiopulmonary disease.
[2021-07-04 14:28] LABS: SARS-COV-2 RT PCR POSITIVE (NEGATIVE)
--- NOTE | 2021-07-04 14:56 | EDPHYS ---
Physician Documentation [facility] Name: Avila Marshall Age: 41 yrs Sex: Male : 1980 Arrival Date: 07/04/2021 Time: 12:23 Bed Waiting Private MD: ED Physician Karl Bethea HPI: 07/04 12:52 This 41 yrs old Black Male presents to ER via Ambulatory with complaints of Chest pm1 Congestion, Chest Pain, Back Pain. 12:52 The patient or guardian reports cough, with no sputum. Onset: The symptoms/episode pm1 began/occurred yesterday. Severity of symptoms: in the emergency department the symptoms are unchanged. Modifying factors: The symptoms are alleviated by nothing, the symptoms are aggravated by nothing. Associated signs and symptoms: Pertinent positives: chest pain, with cough, Chills, Pertinent negatives: diarrhea, nausea, vomiting. The patient has not experienced similar symptoms in the past. The patient has not recently seen a physician. Historical: - Allergies: 12:40 SHELLFISH; ll1 - PMHx: 12:40 Hypertensive disorder; ll1 - PSHx: 12:40 left shoulder; ll1 - Immunization history:: Client reports receiving the 2nd dose of the Covid vaccine. - Social history:: Smoking status: Patient reports the use of cigarette tobacco products, 07/07 PPD. ROS: 12:52 Eyes: Negative for injury, pain, redness, and discharge, ENT: Negative for injury, pm1 pain, and discharge, Cardiovascular: Negative for chest pain, palpitations, and edema. 12:52 Abdomen/GI: Negative for abdominal pain, nausea, vomiting, diarrhea, and constipation. 12:52 MS/Extremity: Negative for injury and deformity, Skin: Negative for injury, rash, and discoloration. 12:52 Neuro: Negative for headache, weakness, numbness, tingling, and seizure. 12:52 Respiratory: Positive for cough, Negative for shortness of breath. 12:52 Back: Positive for generalized back ache. 12:52 All other systems are negative. Exam: 12:52 Constitutional: This is a well developed, well nourished patient who is awake, alert, pm1 and in no acute distress. Head/Face: Normocephalic, atraumatic. 12:52 Back: No spinal tenderness. No costovertebral tenderness. Full range of motion. Skin: Warm, dry with normal turgor. Normal color with no rashes, no lesions, and no evidence of cellulitis. MS/ Extremity: Pulses equal, no cyanosis. Neurovascular intact. Full, normal range of motion. 12:52 ENT: Exam is negative for acute changes, Mouth: no acute changes, Lips: normal, moist, Oral mucosa: normal, pink and intact, moist. 12:52 Cardiovascular: Exam negative for acute changes, Rate: normal, Rhythm: regular, Pulses: no pulse deficits are appreciated. 12:52 Respiratory: Exam negative for acute changes, respiratory distress, shortness of breath, Breath sounds: are clear throughout. 12:52 Neuro: Exam negative for acute changes, Orientation: is normal, Mentation: is normal, Motor: is normal, moves all fours. Vital Signs: 12:41 BP 127 / 91; Pulse 117; Resp 17; Temp 100.0; Pulse Ox 99% ; Weight 136.08 kg; Height 6 ll1 ft. 6 in. (198.12 cm); Pain 6/10; 12:41 Body Mass Index 34.67 (136.08 kg, 198.12 cm) ll1 MDM: 12:52 Patient medically screened. pm1 14:53 Data reviewed: vital signs. Data interpreted: Pulse oximetry: on room air is 99 %. pm1 Interpretation: normal. Counseling: I had a detailed discussion with the patient and/or guardian regarding: the historical points, exam findings, and any diagnostic results supporting the discharge/admit diagnosis, lab results, radiology results, the need for outpatient follow up, to return to the emergency department if symptoms worsen or persist or if there are any questions or concerns that arise at home. 07/04 12:51 Order name: COVID-19/FLU A+B (Document "Date of Onset" if Symptomatic); Complete Time: pm1 14:37 07/04 12:51 Order name: Chest Single View XRAY; Complete Time: 14:37 pm1 Administered Medications: 13:00 Drug: Ibuprofen 800 mg Route: PO; ll1 19:49 Follow up: Response: No adverse reaction ll1 Disposition: 07/05 07:12 Co-signature as Attending Physician, Karl Bethea MD I agree with the assessment and rn plan of care. Attestation: The patient's history, exam findings, diagnostics, and a summary of any interventions or procedures was reviewed in detail with Bart Zamora NP. Disposition Summary: 07/04/21 14:55 Discharge Ordered Location: Home pm1 Problem: new pm1 Symptoms: have improved pm1 Condition: Stable pm1 Diagnosis - Coronavirus infection, unspecified pm1 Followup: pm1 - With: Emergency Department - When: As needed - Reason: Worsening of condition Followup: pm1 - With: Private Physician - When: 2 - 3 days - Reason: Recheck today's complaints, Continuance of care, Re-evaluation by your physician Discharge Instructions: - Discharge Summary Sheet pm1 - COVID-19 pm1 - COVID-19 Frequently Asked Questions pm1 - 10 Things You Can Do to Manage Your COVID-19 Symptoms at Home - [facility] pm1 - COVID-19: Quarantine vs. Isolation - [facility] pm1 Forms: - Medication Reconciliation Form pm1 - Thank You Letter pm1 - Antibiotic Education pm1 - Prescription Opioid Use pm1 Prescriptions: - Guaifenesin AC 10-100 mg/5 mL Oral Liquid - take 10 milliliters by ORAL route every 4 hours As needed; 240 milliliter; pm1 Refills: 0, Product Selection Permitted Signatures: Dispatcher [employer] EDMS Karl Bethea MD MD rn Marinas, Patrick, NP P[employer] INSTALLER pm1 Jessie Contreras RN RN 1
--- NOTE | 2021-07-04 14:56 | ER ---
Nurse's Notes [facility] Name: Avila Marshall Age: 41 yrs Sex: Male : 1980 Arrival Date: 07/04/2021 Time: 12:23 Bed Waiting Private MD: Diagnosis: Coronavirus infection, unspecified Presentation: 07/04 12:41 Chief complaint: Patient states: Had a bad cough 3 weeks ago that resolved on its own. ll1 Yesterday started with cough, congestion, back and chest discomfort, body aches, no appetite. Coronavirus screen: Vaccine status: Patient reports being unvaccinated. Client denies travel out of the [place] in the last 14 days. congestion, cough unrelated to allergies, fatigue, fever, headache, muscle pain, Client presents with at least one sign or symptom that may indicate coronavirus-19. Standard/surgical mask placed on the client. Ebola Screen: Patient denies travel to an Ebola-affected area in the 21 days before illness onset. Initial Sepsis Screen: Does the patient meet any 2 criteria? HR > 90 bpm. No. Patient's initial sepsis screen is negative. Does the patient have a suspected source of infection? Yes: Productive cough/pneumonia. Risk Assessment: Do you want to hurt yourself or someone else? Patient reports no desire to harm self or others. Onset of symptoms was July 03, 2021. 12:41 Method Of Arrival: Ambulatory ll1 12:41 Acuity: JORGE 4 ll1 Triage Assessment: 12:41 General: Appears in no apparent distress. Behavior is calm, cooperative, appropriate ll1 for age. Pain: Complains of pain in back Quality of pain is described as aching. EENT: Nares are clear. Neuro: Reports headache. Cardiovascular: Reports chest pain, Heart tones S1 S2. Respiratory: Reports cough that is Airway is patent Trachea midline Respiratory effort is even, unlabored, Respiratory pattern is regular, symmetrical, Breath sounds are clear bilaterally. GI: No deficits noted. : No deficits noted. Musculoskeletal: Circulation, motion, and sensation intact. Capillary refill < 3 seconds, Range of motion: intact in all extremities, Reports body aches. Historical: - Allergies: 12:40 SHELLFISH; ll1 - PMHx: 12:40 Hypertensive disorder; ll1 - PSHx: 12:40 left shoulder; ll1 - Immunization history:: Client reports receiving the 2nd dose of the Covid vaccine. - Social history:: Smoking status: Patient reports the use of cigarette tobacco products, / PPD. Screenin:45 Abuse screen: Denies threats or abuse. Nutritional screening: No deficits noted. ll1 Tuberculosis screening: No symptoms or risk factors identified. Fall Risk Total Thorne Fall Scale indicates No Risk (0-24 pts). Assessment: 13:40 Reassessment: No changes from previously documented assessment. Patient and/or family ll1 updated on plan of care and expected duration. Pain level reassessed. Patient is alert, oriented x 3, equal unlabored respirations, skin warm/dry/pink. Pain: Complains of pain in body Pain does not radiate. Pain began 1 day ago. 14:40 Reassessment: No changes from previously documented assessment. Patient and/or family ll1 updated on plan of care and expected duration. Pain level reassessed. Patient is alert, oriented x 3, equal unlabored respirations, skin warm/dry/pink. Vital Signs: 12:41 BP 127 / 91; Pulse 117; Resp 17; Temp 100.0; Pulse Ox 99% ; Weight 136.08 kg; Height 6 ll1 ft. 6 in. (198.12 cm); Pain 6/10; 12:41 Body Mass Index 34.67 (136.08 kg, 198.12 cm) ll1 ED Course: 12:23 Patient arrived in ED. as 12:40 Arm band placed on. ll1 12:40 Patient has correct armband on for positive identification. Cardiac monitoring not ll1 applicable on this patient. 12:43 Triage completed. ll1 12:45 No provider procedures requiring assistance completed. Patient did not have IV access ll1 during this emergency room visit. Patient maintains SpO2 saturation greater than 95% on room air. 12:46 Bart Zamora NP is PHCP. pm1 12:46 Karl Bethea MD is Attending Physician. pm1 14:17 Chest Single View XRAY In Process Unspecified. EDMS Administered Medications: 13:00 Drug: Ibuprofen 800 mg Route: PO; ll1 19:49 Follow up: Response: No adverse reaction ll1 Outcome: 14:55 Discharge ordered by . pm1 15:11 Patient left the ED. ll1 15:11 Discharged to home ambulatory. ll1 15:11 Condition: stable 15:11 Discharge instructions given to patient, Instructed on discharge instructions, follow up and referral plans. no drinking with medication, no driving heavy equipment, medication usage, Demonstrated understanding of instructions, follow-up care, medications, Prescriptions given X 1. Signatures: Dispatcher [employer] Frances Enriquez Patrick, NP [employer] pm1 Jessie Contreras RN RN ll1
[2021-07-04 15:21] VITALS: BP 127/91; TEMP 100; O2SAT 99
== END 2021-07-04 15:11 | disposition home or self-care (01) ==
LOC: ER 12:22
DX: U07.1 COVID-19 (principal); I10 Essential (primary) hypertension; Z91.013 Allergy to seafood
CPT/HCPCS: 0240U; 71045; 99284

== ENCOUNTER 2021-10-01 20:16 | Emergency (ER) | payer OTHER ==
[2021-10-01] MEDS ORDERED: ONDANSETRON 4 MG/2 ML VIAL ONE (21:07)
[2021-10-01] MEDS ORDERED: NA CHLORIDE 0.9% 1,000 ML ONE (21:07)
[2021-10-01] MEDS ORDERED: MORPHINE 4 MG/ML SYR ONE (21:07)
[2021-10-01 21:12] LABS: Urine Blood Negative (Negative); Urine Glucose Negative (Negative); Urine Protein Negative (Negative); Urine Specific Gravity >=1.030 (1.005-1.030)
[2021-10-01 21:14] LABS: Absolute Lymphocytes (CBC) 2.5 K/uL (0.7-4.9); Hematocrit 43.5 % (39.6-49.0); Lymphocytes % 42.3 % (15.3-44.8); MPV 9.6 fL (7.6-11.3); RBC Red Blood Cell Count 5.22 M/uL (4.33-5.43)
[2021-10-01 21:20] LABS: Potassium 3.7 mmol/L (3.5-5.1); Sodium Level 139 mmol/L (136-145)
--- NOTE | 2021-10-01 21:40 | RAD REPORT ---
EXAM DESCRIPTION: CT - Stone Protocol - 10/01/2021 9:28 pm CLINICAL HISTORY: Flank pain. Flank pain;Abd pain COMPARISON: Abdomen Pelvis W Contrast dated 02/04/2019 TECHNIQUE: Axial images were obtained without oral or IV contrast. Lack of contrast limits solid org an and vascular assessment. The [id number] spans the entirety of the system partially obscuring uppermost abdomen and lung bases. Coronal reformatted images were obtained and reviewed. All CT scans are performed using dose optimization technique as appropriate and may include automated exposure control or mA/KV adjustment according to patient size. FINDINGS: The lower lung viera are clear. Imaged portions of the liver and spleen show no suspicious findings on non-contrast imaging. The panc reas and adrenal glands are normal. No pathologic lymphadenopathy in the abdomen or pelvis. No urinary tract stones or obstructive uropathy. No bowel obstruction, free air, free fluid or abscess. Normal appendix noted. Small fat containing ri ght inguinal hernia. Vacuum disc degeneration with moderate spondylosis L5-S1. IMPRESSION: No urinary tract stones or obstructive uropathy.
[2021-10-01 21:42] LABS: Albumin 3.7 g/dL (3.4-5.0); Alkaline Phosphatase 71 U/L (45-117); Bicarbonate 26 mmol/L (21-32); Bilirubin Total 0.5 mg/dL (0.2-1.0); Glucose Level 166 mg/dL (74-106)
[2021-10-01 21:53] LABS: ALT/SGPT 39 U/L (12-78); BUN Blood Urea Nitrogen 8 mg/dL (7-18); Bilirubin Direct < 0.4 mg/dL (0-0.2); Protein, Total 7.5 g/dL (6.4-8.2)
[2021-10-01 21:55] LABS: AST/SGOT 28 U/L (15-37)
--- NOTE | 2021-10-01 23:13 | ER ---
Nurse's Notes [facility] – [place], [place] Name: Avila Marshall Age: 41 yrs Sex: Male : 1980 Arrival Date: 10/01/2021 Time: 20:20 Bed 6 Private MD: Diagnosis: Flank Pain, Left;Hyperglycemia, unspecified Presentation: 10/01 20:29 Chief complaint: Patient states: left sided flank pain and urinary frequency/urgency lg3 starting last Saturday. Coronavirus screen: Client denies travel out of the [place] in the last 14 days. At this time, the client does not indicate any symptoms associated with coronavirus-19. Ebola Screen: No symptoms or risks identified at this time. Initial Sepsis Screen: Does the patient meet any 2 criteria? No. Patient's initial sepsis screen is negative. Does the patient have a suspected source of infection? No. Patient's initial sepsis screen is negative. Risk Assessment: Do you want to hurt yourself or someone else? Patient reports no desire to harm self or others. Onset of symptoms was September 27, 2021. 20:29 Method Of Arrival: Ambulatory lg3 20:29 Acuity: JORGE 3 lg3 Triage Assessment: 20:31 General: Appears in no apparent distress. uncomfortable, Behavior is calm, cooperative. lg3 Pain: Complains of pain in left low back and left mid back. EENT: No deficits noted. No signs and/or symptoms were reported regarding the EENT system. Neuro: No deficits noted. Level of Consciousness is awake, alert, obeys commands, Oriented to person, place, time, situation. Cardiovascular: No deficits noted. Denies chest pain, shortness of breath. Respiratory: No deficits noted. Airway is patent Trachea midline Respiratory effort is even, unlabored, Respiratory pattern is regular, symmetrical. GI: No deficits noted. Abdomen is round non-distended. : Reports urgency, urinary frequency. Derm: No deficits noted. No signs and/or symptoms reported regarding the dermatologic system. Skin is intact, is healthy with good turgor, Skin is dry. Musculoskeletal: No deficits noted. No signs and/or symptoms reported regarding the musculoskeletal system. Circulation, motion, and sensation intact. Capillary refill < 3 seconds, Range of motion: intact in all extremities. Historical: - Allergies: 20:31 SHELLFISH; lg3 - Home Meds: 20:31 lisinopril Oral [Active]; lg3 - PMHx: 20:31 Hypertensive disorder; lg3 - PSHx: 20:31 left shoulder; lg3 - Immunization history:: Adult Immunizations up to date, Client reports receiving the 2nd dose of the Covid vaccine, pfizer X2. - Social history:: Smoking status: Patient reports the use of cigarette tobacco products, denies chronic smoking, but will smoke occasionally, Patient uses alcohol, occasionally. Patient/guardian denies using street drugs. Screenin:33 Abuse screen: Denies threats or abuse. Denies injuries from another. Nutritional lg3 screening: No deficits noted. Tuberculosis screening: No symptoms or risk factors identified. Fall Risk None identified. Assessment: 21:13 General: Appears in no apparent distress. Behavior is calm, cooperative, appropriate ke1 for age. Pain: Complains of pain in left flank Pain currently is 3 out of 10 on a pain scale. at worst was 5 out of 10 on a pain scale. level that patient reports is acceptable is 5 out of 10 on a pain scale. Neuro: Neuro: Level of Consciousness is awake, alert, Oriented to person, place, time, situation. Cardiovascular: Denies chest pain, Heart tones S1 S2. Respiratory: Airway is patent Respiratory effort is even, unlabored, Respiratory pattern is regular, symmetrical. GI: Abdomen is non-distended, Bowel sounds present X 4 quads. Abdomen is tender to palpation in left lower quadrant and left flank. : No deficits noted. EENT: No deficits noted. Derm: No deficits noted. Musculoskeletal: No deficits noted. 21:30 Reassessment: Patient states feeling better. Patient states symptoms have improved. ke1 22:30 Reassessment: No changes from previously documented assessment. Patient is alert, ke1 oriented x 3, equal unlabored respirations, skin warm/dry/pink. 23:20 Reassessment: No changes from previously documented assessment. Patient is alert, ke1 oriented x 3, equal unlabored respirations, skin warm/dry/pink. Vital Signs: 20:29 BP 161 / 102; Pulse 98; Resp 16 S; Temp 98.8(O); Pulse Ox 99% on R/A; Weight 133.81 kg lg3 (R); Height 6 ft. 7 in. (200.66 cm) (R); Pain 3/10; 23:15 BP 142 / 98; Pulse 86; Resp 18; Pulse Ox 100% on R/A; ke1 20:29 Body Mass Index 33.23 (133.81 kg, 200.66 cm) lg3 Brian Coma Score: 20:31 Eye Response: spontaneous(4). Verbal Response: oriented(5). Motor Response: obeys lg3 commands(6). Total: 15. ED Course: 20:20 Patient arrived in ED. tw5 20:21 Mike Domingo MD is Attending Physician. [facility] 20:30 Triage completed. lg3 20:31 Arm band placed on left wrist. lg3 20:31 Bed in low position. ke1 20:36 Tawana Christianson, MERT is Primary Nurse. 5 21:03 Inserted saline lock: 20 gauge in right antecubital area, using aseptic technique. ke1 21:29 CT Stone Protocol In Process Unspecified. EDMS 23:16 No provider procedures requiring assistance completed. ke1 23:16 IV discontinued. ke1 Administered Medications: 21:12 Drug: Zofran (Ondansetron) 4 mg Route: IVP; Site: right antecubital; ke1 23:09 Follow up: Response: Marked relief of symptoms ke1 21:13 Drug: morphine 4 mg Route: IVP; Site: right antecubital; ke1 23:09 Follow up: Response: Marked relief of symptoms ke1 22:03 Drug: NS 0.9% 1000 ml Route: IV; Rate: 1000 ml; Site: right antecubital; ke1 23:17 Follow up: IV Status: Completed infusion ke1 Outcome: 23:13 Discharge ordered by . [facility] 23:16 Discharged to home ambulatory. ke1 23:16 Condition: good 23:16 Discharge instructions given to patient. 23:25 Patient left the ED. ke1 Signatures: Dispatcher [employer] EDMS Lavonne Ontiveros RN RN 3 Mike Domingo MD MD [place] 5 Tawana Christiasnon RN RN [facility] Jadon Borges RN RN ke1 Corrections: (The following items were deleted from the chart) 23:16 23:15 Pulse 86bpm; Resp 18bpm; Pulse Ox 100% RA; ke1 ke1
--- NOTE | 2021-10-01 23:14 | EDPHYS ---
Physician Documentation [facility] Name: Avila Marshall Age: 41 yrs Sex: Male : 1980 Arrival Date: 10/01/2021 Time: 20:20 Bed 6 Private MD: ED Physician Mike Domingo HPI: 10/01 20:55 This 41 yrs old Black Male presents to ER via Ambulatory with complaints of Urinary mh7 Frequency, Low Back Pain, Flank Pain. 20:55 The patient complains of pain in the left flank. The pain radiates to the left lower mh7 abdomen. Onset: The symptoms/episode began/occurred 4 day(s) ago. Modifying factors: The symptoms are alleviated by nothing. the symptoms are aggravated by movement, palpation/percussion. Associated signs and symptoms: Pertinent positives: urinary frequency, Pertinent negatives: diarrhea, dizziness, dysuria, fever, headache, hematuria, nausea, pain radiating to the lower extremities, vomiting. Severity of pain: At its worst the pain was moderate 3 day(s) ago, in the emergency department the pain is unchanged. Historical: - Allergies: 20:31 SHELLFISH; lg3 - Home Meds: 20:31 lisinopril Oral [Active]; lg3 - PMHx: 20:31 Hypertensive disorder; lg3 - PSHx: 20:31 left shoulder; lg3 - Immunization history:: Adult Immunizations up to date, Client reports receiving the 2nd dose of the Covid vaccine, pfizer X2. - Social history:: Smoking status: Patient reports the use of cigarette tobacco products, denies chronic smoking, but will smoke occasionally, Patient uses alcohol, occasionally. Patient/guardian denies using street drugs. ROS: 20:55 Constitutional: Negative for fever, chills, and weight loss, Eyes: Negative for injury, mh7 pain, redness, and discharge, ENT: Negative for injury, pain, and discharge, Neck: Negative for injury, pain, and swelling, Cardiovascular: Negative for chest pain, palpitations, and edema, Respiratory: Negative for shortness of breath, cough, wheezing, and pleuritic chest pain, MS/Extremity: Negative for injury and deformity, Skin: Negative for injury, rash, and discoloration, Neuro: Negative for headache, weakness, numbness, tingling, and seizure, Psych: Negative for depression, anxiety, suicide ideation, homicidal ideation, and hallucinations, Allergy/Immunology: Negative for hives, rash, and allergies, Endocrine: Negative for neck swelling, polydipsia, polyuria, polyphagia, and marked weight changes, Hematologic/Lymphatic: Negative for swollen nodes, abnormal bleeding, and unusual bruising. Exam: 20:55 Head/Face: Normocephalic, atraumatic. Eyes: Pupils equal round and reactive to light, mh7 extra-ocular motions intact. Lids and lashes normal. Conjunctiva and sclera are non-icteric and not injected. Cornea within normal limits. Periorbital areas with no swelling, redness, or edema. Neck: Trachea midline, no thyromegaly or masses palpated, and no cervical lymphadenopathy. Supple, full range of motion without nuchal rigidity, or vertebral point tenderness. No Meningismus. Chest/axilla: Normal chest wall appearance and motion. Nontender with no deformity. No lesions are appreciated. Cardiovascular: Regular rate and rhythm with a normal S1 and S2. No gallops, murmurs, or rubs. Normal PMI, no JVD. No pulse deficits. Respiratory: Lungs have equal breath sounds bilaterally, clear to auscultation and percussion. No rales, rhonchi or wheezes noted. No increased work of breathing, no retractions or nasal flaring. 20:55 Skin: Warm, dry with normal turgor. Normal color with no rashes, no lesions, and no evidence of cellulitis. MS/ Extremity: Pulses equal, no cyanosis. Neurovascular intact. Full, normal range of motion. Neuro: Awake and alert, GCS 15, oriented to person, place, time, and situation. Cranial nerves II-XII grossly intact. Motor strength 5/5 in all extremities. Sensory grossly intact. Cerebellar exam normal. Normal gait. Psych: Awake, alert, with orientation to person, place and time. Behavior, mood, and affect are within normal limits. 20:55 Constitutional: The patient appears in no acute distress, alert, awake, uncomfortable. 20:55 Abdomen/GI: Inspection: abdomen appears normal, Bowel sounds: normal, in all quadrants, Palpation: mild abdominal tenderness, in the left lower quadrant, mass, is not appreciated, rebound tenderness, is not appreciated, voluntary guarding, is not appreciated, involuntary guarding, is not appreciated, no appreciated organomegaly, Rectal exam: the exam is deferred, because of patient request, Indicators: McBurney's point is not tender, Sandoval's sign is negative, Rovsing's sign is negative, Obturator sign is negative, Psoas sign is negative, Liver: no appreciated palpable abnormalities, Hernia: not appreciated. 20:55 Back: normal spinal alignment noted, CVA tenderness, that is moderate, is noted on the left, vertebral tenderness, is not appreciated, muscle spasm, is not present. Vital Signs: 20:29 BP 161 / 102; Pulse 98; Resp 16 S; Temp 98.8(O); Pulse Ox 99% on R/A; Weight 133.81 kg lg3 (R); Height 6 ft. 7 in. (200.66 cm) (R); Pain 3/10; 23:15 BP 142 / 98; Pulse 86; Resp 18; Pulse Ox 100% on R/A; ke1 20:29 Body Mass Index 33.23 (133.81 kg, 200.66 cm) lg3 Brian Coma Score: 20:31 Eye Response: spontaneous(4). Verbal Response: oriented(5). Motor Response: obeys lg3 commands(6). Total: 15. MDM: 23:11 Differential diagnosis: nephrolithiasis, pyelonephritis, UTI. Data reviewed: vital 7 signs, nurses notes, lab test result(s), CBC, electrolytes, urinalysis, radiologic studies, CT scan. Data interpreted: Pulse oximetry: on room air is 99 %. Interpretation: normal. Counseling: I had a detailed discussion with the patient and/or guardian regarding: the historical points, exam findings, and any diagnostic results supporting the discharge/admit diagnosis, the presence of at least one elevated blood pressure reading (>120/80) during this emergency department visit, lab results, radiology results, the need for outpatient follow up, to return to the emergency department if symptoms worsen or persist or if there are any questions or concerns that arise at home. Response to treatment: the patient's symptoms have resolved after treatment, the patient's blood pressure is in an acceptable range, mental status has returned to baseline, the patient no longer shows bradycardia, the patient is not short of breath, the patient is not tachycardic, the patient's pain is gone, the patient's temperature has normalized, patient is well hydrated. 23:13 Patient medically screened. [facility] 10/01 20:22 Order name: Basic Metabolic Panel; Complete Time: 22:17 [facility] 10/01 20:22 Order name: CBC with Diff; Complete Time: 22:17 [facility] 10/01 20:22 Order name: Hepatic Function; Complete Time: 22:17 [facility] 10/01 20:45 Order name: CT Stone Protocol; Complete Time: 22: [facility] 10/01 21:12 Order name: Urine Dipstick-Ancillary; Complete Time: 22:17 EDMS 10/01 20:22 Order name: EKG; Complete Time: 20:23 [facility] 10/01 20:22 Order name: IV Saline Lock; Complete Time: 21: [facility] 10/01 20:22 Order name: Labs collected and sent; Complete Time: 21: [facility] 10/01 20:22 Order name: Urine Dipstick-Ancillary (obtain specimen); Complete Time: 21:13 [facility] Administered Medications: 21:12 Drug: Zofran (Ondansetron) 4 mg Route: IVP; Site: right antecubital; ke1 23:09 Follow up: Response: Marked relief of symptoms ke1 21:13 Drug: morphine 4 mg Route: IVP; Site: right antecubital; ke1 23:09 Follow up: Response: Marked relief of symptoms ke1 22:03 Drug: NS 0.9% 1000 ml Route: IV; Rate: 1000 ml; Site: right antecubital; ke1 23:17 Follow up: IV Status: Completed infusion ke1 Disposition Summary: 10/01/21 23:13 Discharge Ordered Location: Home [facility] Problem: new [facility] Symptoms: have improved [facility] Condition: Stable [facility] Diagnosis - Flank Pain, Left 7 - Hyperglycemia, unspecified [facility] Followup: [facility] - With: Private Physician - When: 1 - 2 days - Reason: If symptoms return, Worsening of condition, Recheck today's complaints, Continuance of care, Re-evaluation by your physician Discharge Instructions: - Discharge Summary Sheet [facility] - Hyperglycemia, [id number] [facility] - Flank Pain, Adult, [id number] [facility] Forms: - Medication Reconciliation Form [facility] - Thank You Letter [facility] - Antibiotic Education [facility] - Prescription Opioid Use [facility] Prescriptions: - Ibuprofen 800 mg Oral Tablet - take 1 tablet by ORAL route every 8 hours As needed take with food; 15 tablet; [facility] Refills: 0, Product Selection Permitted Signatures: Dispatcher [employer] EDMS Lavonne Ontiveros, MERT RN lg3 Mike Domingo MD MD 7 Jadon Borges RN RN ke1 Corrections: (The following items were deleted from the chart) 20:25 20:22 EKG - Nurse/Tech ordered. [place] [id number] 20:32 20:23 Head C Spine MPR Wo Con+CT.RAD.BRZ ordered. EDMS EDMS 20:45 20:22 Suicide Screening ([place]) ordered. [place] [id number] 20:50 20:23 SALICYLATE+C.LAB.BRZ ordered. EDMS EDMS 20:51 20:23 ACETAMINOPHEN+C.LAB.BRZ ordered. EDMS EDMS 20:51 20:23 ETHANOL+C.LAB.BRZ ordered. EDMS EDMS 20:51 20:23 PROTIME (+INR)+COAG.LAB.BRZ ordered. EDMS EDMS 20:51 20:23 PTT, ACTIVATED+COAG.LAB.BRZ ordered. EDMS EDMS 20:51 20:23 TEST, SERUM+SC.LAB.BRZ ordered. EDMS EDMS
[2021-10-01 23:32] VITALS: TEMP 98.8
[2021-10-01 23:33] VITALS: BP 142/98; O2SAT 100
== END 2021-10-01 23:25 | disposition home or self-care (01) ==
LOC: ER 20:16
DX: R10.9 Unspecified abdominal pain (principal); R73.9 Hyperglycemia, unspecified; I10 Essential (primary) hypertension; F17.210 Nicotine dependence, cigarettes, uncomplicated; Z91.013 Allergy to seafood
CPT/HCPCS: 96361; 93005; 85025; 80048; 36415; 80076; 81003; 76377; 74176; 96375; 96374; 99283; J7030; J2405

== ENCOUNTER 2021-11-03 20:17 | Emergency (ER) | payer OTHER ==
[2021-11-03 20:45] LABS: Absolute Lymphocytes (CBC) 2.4 K/uL (0.7-4.9); Hematocrit 43.3 % (39.6-49.0); Lymphocytes % 26.9 % (15.3-44.8); MPV 9.2 fL (7.6-11.3); RBC Red Blood Cell Count 5.22 M/uL (4.33-5.43)
[2021-11-03] MEDS ORDERED: ASPIRIN 81 MG CHEWABLE TABLET ONE (20:57)
[2021-11-03 21:10] LABS: Potassium 3.7 mmol/L (3.5-5.1); Troponin High Sensitivity 6.3 pg/mL (<58.9)
--- NOTE | 2021-11-03 21:23 | RAD REPORT ---
EXAM DESCRIPTION: Herminio Single View11/03/2021 9:12 pm CLINICAL HISTORY: Chest pain COMPARISON: none FINDINGS: The lungs appear clear of acute infiltrate. The heart is normal size IMPRESSION: No acute abnormalities displayed
[2021-11-03] MEDS ORDERED: NA CHLORIDE 0.9% 1,000 ML ONE (21:34)
[2021-11-03 21:40] LABS: Urine Blood Negative (Negative); Urine Glucose Negative (Negative); Urine Protein Negative (Negative); Urine Specific Gravity >=1.030 (1.005-1.030); Urine pH 5.5 (5.0-7.0)
[2021-11-03 22:13] LABS: Barbiturates NEGATIVE (NEGATIVE); Benzodiazepines NEGATIVE (NEGATIVE); Cocaine POSITIVE (NEGATIVE); METHAMPHETAM NEGATIVE (NEGATIVE); Methadone NEGATIVE (NEGATIVE); Opiates NEGATIVE (NEGATIVE); Phencyclidine NEGATIVE (NEGATIVE); THC Cannibis NEGATIVE (NEGATIVE)
--- NOTE | 2021-11-03 22:52 | EDPHYS ---
Physician Documentation [facility] Name: Avila Marshall Age: 41 yrs Sex: Male : 1980 Arrival Date: 11/03/2021 Time: 20:19 Bed 6 Private MD: ED Physician Mike Domingo HPI: 11/03 20:50 This 41 yrs old Black Male presents to ER via Ambulatory with complaints of Chest Pain, mh7 Arm Problem, Other. 20:50 The patient or guardian reports chest pain that is located primarily in the substernal mh7 area. Onset: today, at 17:00. The pain radiates to the left arm. Associated signs and symptoms: Pertinent negatives: abdominal pain, cough, diaphoresis, dizziness, headache, lower extremity pain, lower extremity swelling, lightheadedness, nausea, near syncope, palpitations, recent travel, shortness of breath, syncope, vomiting. The chest pain is described as sharp. Duration: The patient or guardian reports multiple episodes, that are intermittent, that wax and wane, with no pattern. Modifying factors: The symptoms are alleviated by nothing. the symptoms are aggravated by nothing. Severity of pain: At its worst the pain was moderate today, in the emergency department the pain has resolved and did so just prior to arrival. Admits to cocaine use last night. Historical: - Allergies: 20:33 SHELLFISH; tw5 - Home Meds: 20:33 losartan 100 mg oral tab [Active]; tw5 - PMHx: 20:33 Hypertensive disorder; tw5 - PSHx: 20:33 left shoulder; tw5 - Immunization history:: Flu vaccine is not up to date. - Social history:: Smoking status: . ROS: 20:50 Constitutional: Negative for fever, chills, and weight loss, Eyes: Negative for injury, mh7 pain, redness, and discharge, ENT: Negative for injury, pain, and discharge, Neck: Negative for injury, pain, and swelling, Respiratory: Negative for shortness of breath, cough, wheezing, and pleuritic chest pain, Abdomen/GI: Negative for abdominal pain, nausea, vomiting, diarrhea, and constipation, Back: Negative for injury and pain, : Negative for injury, bleeding, discharge, and swelling, MS/Extremity: Negative for injury and deformity, Skin: Negative for injury, rash, and discoloration, Psych: Negative for depression, anxiety, suicide ideation, homicidal ideation, and hallucinations, Allergy/Immunology: Negative for hives, rash, and allergies, Endocrine: Negative for neck swelling, polydipsia, polyuria, polyphagia, and marked weight changes, Hematologic/Lymphatic: Negative for swollen nodes, abnormal bleeding, and unusual bruising. Exam: 20:50 Constitutional: This is a well developed, well nourished patient who is awake, alert, mh7 and in no acute distress. Head/Face: Normocephalic, atraumatic. Eyes: Pupils equal round and reactive to light, extra-ocular motions intact. Lids and lashes normal. Conjunctiva and sclera are non-icteric and not injected. Cornea within normal limits. Periorbital areas with no swelling, redness, or edema. Neck: Trachea midline, no thyromegaly or masses palpated, and no cervical lymphadenopathy. Supple, full range of motion without nuchal rigidity, or vertebral point tenderness. No Meningismus. Chest/axilla: Normal chest wall appearance and motion. Nontender with no deformity. No lesions are appreciated. Cardiovascular: Regular rate and rhythm with a normal S1 and S2. No gallops, murmurs, or rubs. Normal PMI, no JVD. No pulse deficits. Respiratory: Lungs have equal breath sounds bilaterally, clear to auscultation and percussion. No rales, rhonchi or wheezes noted. No increased work of breathing, no retractions or nasal flaring. Abdomen/GI: Soft, non-tender, with normal bowel sounds. No distension or tympany. No guarding or rebound. No evidence of tenderness throughout. Back: No spinal tenderness. No costovertebral tenderness. Full range of motion. Skin: Warm, dry with normal turgor. Normal color with no rashes, no lesions, and no evidence of cellulitis. MS/ Extremity: Pulses equal, no cyanosis. Neurovascular intact. Full, normal range of motion. Neuro: Awake and alert, GCS 15, oriented to person, place, time, and situation. Cranial nerves II-XII grossly intact. Motor strength 5/5 in all extremities. Sensory grossly intact. Cerebellar exam normal. Normal gait. Psych: Awake, alert, with orientation to person, place and time. Behavior, mood, and affect are within normal limits. Vital Signs: 20:29 BP 159 / 110; Pulse 99; Resp 18; Temp 98.6(O); Pulse Ox 99% on R/A; Weight 136.08 kg; tw5 Height 6 ft. 7 in. (200.66 cm); Pain 4/10; 20:35 BP 144 / 106; Pulse 102; Resp 18; Pulse Ox 99% on R/A; tw5 21:35 BP 129 / 106; Pulse 91; Resp 19; Pulse Ox 98% on R/A; tw5 22:52 BP 121 / 86; Pulse 75; Resp 18; Pulse Ox 98% on R/A; sm5 20:29 Body Mass Index 33.80 (136.08 kg, 200.66 cm) tw5 MDM: 22:47 Differential diagnosis: acute myocardial infarction, acute pericarditis, anxiety, mh7 coronary artery disease chest wall pain, congestive heart failure costochondritis, esophagitis, gastritis, gastroesophageal reflux disease (GERD), myocarditis, peptic ulcer disease, pericarditis, pleurisy, pneumonia, pneumothorax. HEART Score: History: Slightly Suspicious (0), ECG: Non specific repolarization disturbance / LBTB / PM (1), Age: < or = 45 years (0), Risk Factors: No Risk Factors Known (0), Troponin: < or = 1 x Normal Limit (0), Total Score = 1. Data reviewed: vital signs, nurses notes, old medical records, lab test result(s), cardiac enzymes, CBC, electrolytes, urinalysis, EKG, radiologic studies, plain films. Data interpreted: Pulse oximetry: on room air is 98 %. Interpretation: normal. Counseling: I had a detailed discussion with the patient and/or guardian regarding: the historical points, exam findings, and any diagnostic results supporting the discharge/admit diagnosis, lab results, radiology results, the need for outpatient follow up, to return to the emergency department if symptoms worsen or persist or if there are any questions or concerns that arise at home. Response to treatment: the patient's symptoms have resolved after treatment, the patient's blood pressure is in an acceptable range, mental status has returned to baseline, the patient no longer shows bradycardia, the patient is not short of breath, the patient is not tachycardic, the patient's pain is gone, the patient's temperature has normalized, the patient is now symptom free, patient is well hydrated. ED course: Well appearing, NAD, VSS, no focal neurological deficits. Discussed test results and findings with patient. He requests to be discharged from the ED at this time.. 22:51 Patient medically screened. [facility] 11/03 20:28 Order name: Basic Metabolic Panel; Complete Time: 21:11 [facility] 11/03 20:28 Order name: CBC with Diff; Complete Time: 20:56 [facility] 11/03 20:28 Order name: Troponin HS; Complete Time: 21:11 11/03 20:48 Order name: UDS; Complete Time: 22:15 [facility] 11/03 20:54 Order name: Creatine Phosphokinase; Complete Time: 21:11 [facility] 11/03 20:28 Order name: EKG; Complete Time: 20:29 11/03 20:28 Order name: Cardiac monitoring; Complete Time: 20:37 [facility] 11/03 20:28 Order name: EKG - Nurse/Tech; Complete Time: 20:37 [facility] 11/03 20:28 Order name: IV Saline Lock; Complete Time: 20:37 [facility] 11/03 20:31 Order name: Chest Single View XRAY; Complete Time: 21:53 [facility] 11/03 21:41 Order name: Urine Dipstick-Ancillary; Complete Time: 21:53 [facility] 11/03 20:28 Order name: Labs collected and sent; Complete Time: 20:37 11/03 20:28 Order name: O2 Per Protocol; Complete Time: 20:37 [facility] 11/03 20:28 Order name: O2 Sat Monitoring; Complete Time: 20:37 [facility] 11/03 20:48 Order name: Urine Dipstick-Ancillary (obtain specimen); Complete Time: 21:35 [facility] Administered Medications: 20:53 Drug: Aspirin Chewable Tablet 324 mg Route: PO; sm5 21:35 Follow up: Response: No adverse reaction 5 21:34 Drug: NS 0.9% 1000 ml Route: IV; Rate: 1000 ml; Site: right antecubital; tw5 22:56 Follow up: IV Status: Completed infusion; IV Intake: 1000ml 5 Disposition Summary: 11/03/21 22:51 Discharge Ordered Location: Home [facility] Problem: new [facility] Symptoms: are resolved [facility] Condition: Stable [facility] Diagnosis - Chest pain, unspecified [facility] - Cocaine abuse [facility] Followup: [facility] - With: Private Physician - When: 1 - 2 days - Reason: Worsening of condition, Recheck today's complaints, Continuance of care, Re-evaluation by your physician Followup: [facility] - With: Marco Robertson MD - When: 1 - 2 days - Reason: Worsening of condition, Recheck today's complaints Discharge Instructions: - Discharge Summary Sheet [facility] - Cocaine Use Disorder [facility] - Nonspecific Chest Pain, Adult, [id number] [facility] Forms: - Medication Reconciliation Form [facility] - Thank You Letter [facility] - Antibiotic Education [facility] - Prescription Opioid Use [facility] Signatures: Dispatcher [employer] EDMS Mike Domingo MD MD [facility] Do Chung 5 Tawana Christianson RN RN sm5 Corrections: (The following items were deleted from the chart) 20:55 20:49 CREATINE PHOSPHOKINASE+C.LAB.BRZ ordered. EDMS EDMS
--- NOTE | 2021-11-03 22:52 | ER ---
Nurse's Notes [facility] Name: Avila Marshall Age: 41 yrs Sex: Male : 1980 Arrival Date: 11/03/2021 Time: 20:19 Bed 6 Private MD: Diagnosis: Chest pain, unspecified;Cocaine abuse Presentation: 11/03 20:29 Chief complaint: Patient states: "I went to work just fine, when I got home I started tw5 to have sharp pain in the middle and my left arm was tingling and my jaw started to feel heavy. I felt it on the drive over but the heaviness in the jaw went away, but the pain in chest is still present.". Coronavirus screen: Vaccine status: Patient reports receiving the 2nd dose of the covid vaccine. [employer]. Ebola Screen: Patient negative for fever greater than or equal to 101.5 degrees Fahrenheit, and additional compatible Ebola Virus Disease symptoms Patient denies exposure to infectious person. Patient denies travel to an Ebola-affected area in the 21 days before illness onset. Initial Sepsis Screen: Does the patient meet any 2 criteria? HR > 90 bpm. No. Patient's initial sepsis screen is negative. Does the patient have a suspected source of infection? No. Patient's initial sepsis screen is negative. Risk Assessment: Do you want to hurt yourself or someone else? Patient reports no desire to harm self or others. Onset of symptoms was November 03, 2021 at 16:00. 20:29 Method Of Arrival: Ambulatory tw5 20:29 Acuity: JORGE 2 tw5 Triage Assessment: 20:34 General: Appears in no apparent distress. Behavior is calm, cooperative, appropriate tw5 for age. Pain: Complains of pain in chest Pain currently is 4 out of 10 on a pain scale. Quality of pain is described as aching. Cardiovascular: Reports chest pain, Capillary refill Rhythm is. Historical: - Allergies: 20:33 SHELLFISH; tw5 - Home Meds: 20:33 losartan 100 mg oral tab [Active]; tw5 - PMHx: 20:33 Hypertensive disorder; tw5 - PSHx: 20:33 left shoulder; tw5 - Immunization history:: Flu vaccine is not up to date. - Social history:: Smoking status: . Screenin:35 Abuse screen: Denies threats or abuse. Denies injuries from another. Nutritional tw5 screening: No deficits noted. Tuberculosis screening: No symptoms or risk factors identified. Fall Risk None identified. Assessment: 20:35 General: Appears in no apparent distress. Behavior is calm, cooperative, appropriate tw5 for age. Pain: Pain radiates to left jaw and left arm Pain began 3 hours ago. Neuro: Level of Consciousness is awake, alert, obeys commands. Cardiovascular: Capillary refill < 3 seconds. 21:35 Reassessment: Patient appears in no apparent distress at this time. No changes from tw5 previously documented assessment. Patient and/or family updated on plan of care and expected duration. Pain level reassessed. Patient is alert, oriented x 3, equal unlabored respirations, skin warm/dry/pink. Respiratory: No deficits noted. 22:52 Reassessment: No changes from previously documented assessment. Patient and/or family 5 updated on plan of care and expected duration. Pain level reassessed. Vital Signs: 20:29 BP 159 / 110; Pulse 99; Resp 18; Temp 98.6(O); Pulse Ox 99% on R/A; Weight 136.08 kg; tw5 Height 6 ft. 7 in. (200.66 cm); Pain 4/10; 20:35 BP 144 / 106; Pulse 102; Resp 18; Pulse Ox 99% on R/A; tw5 21:35 BP 129 / 106; Pulse 91; Resp 19; Pulse Ox 98% on R/A; tw5 22:52 BP 121 / 86; Pulse 75; Resp 18; Pulse Ox 98% on R/A; sm5 20:29 Body Mass Index 33.80 (136.08 kg, 200.66 cm) tw5 ED Course: 20:19 Patient arrived in ED. ja2 20:28 Do Chung is Primary Nurse. tw5 20:33 Triage completed. tw5 20:33 Arm band placed on right wrist. EKG completed in triage. Results shown to MD. tw5 20:35 Patient has correct armband on for positive identification. Placed in gown. Bed in low tw5 position. Call light in reach. Side rails up X 1. snout puller on. Pulse ox on. NIBP on. Door closed. Noise minimized. Lights dimmed. 20:35 Initial lab(s) drawn, by ED staff, sent to lab. Inserted saline lock: 20 gauge in right tw5 antecubital area, using aseptic technique. Blood collected. 20:36 Mike Domingo MD is Attending Physician. 7 20:37 Basic Metabolic Panel Sent. tw5 20:38 CBC with Diff Sent. tw5 20:38 Troponin HS Sent. tw5 20:51 Basic Metabolic Panel Sent. tw5 20:51 Troponin HS Sent. tw5 21:14 Chest Single View XRAY In Process Unspecified. EDMS 21:35 UDS Sent. tw5 21:35 Urine collected: clean catch specimen, Amount Voided: 100mL. tw5 22:50 Marco Robertson MD is Referral Physician. [facility] 22:56 No provider procedures requiring assistance completed. IV discontinued, intact, 5 bleeding controlled, No redness/swelling at site. Pressure dressing applied. Patient maintains SpO2 saturation greater than 95% on room air. Administered Medications: 20:53 Drug: Aspirin Chewable Tablet 324 mg Route: PO; 5 21:35 Follow up: Response: No adverse reaction tw5 21:34 Drug: NS 0.9% 1000 ml Route: IV; Rate: 1000 ml; Site: right antecubital; tw5 22:56 Follow up: IV Status: Completed infusion; IV Intake: 1000ml 5 Intake: 22:56 IV: 1000ml; Total: 1000ml. [facility] Outcome: 22:51 Discharge ordered by . [facility] 22:56 Discharged to home ambulatory. 5 22:56 Condition: stable 22:56 Discharge instructions given to patient, Instructed on discharge instructions, follow up and referral plans. Demonstrated understanding of instructions, follow-up care. 22:56 Patient left the ED. [facility] Signatures: Dispatcher [employer] EDMS Mike Domingo MD MD 7 Nora Johnson Tiffany 5 Tawana Christianson, RN RN 5 Corrections: (The following items were deleted from the chart) 20:55 20:51 CREATINE PHOSPHOKINASE+C.LAB.BRZ drawn and sent. 5 EDGA
[2021-11-04 00:50] VITALS: TEMP 98.6
[2021-11-04 00:57] VITALS: O2SAT 98
[2021-11-04 00:58] VITALS: BP 121/86
--- NOTE | 2021-11-06 09:02 | EKG ---
Test Date: 2021-11-03 Test Time: 20:30:43 Indirect Sales Representative: SHAUN MEASUREMENT RESULTS: Intervals: Rate: 93 OH: 150 QRSD: 90 QT: 342 QTc: 425 [place]: P: 70 OH: 150 QRS: 76 T: 4 INTERPRETIVE STATEMENTS: Normal sinus rhythm with sinus arrhythmia T wave abnormality, consider inferior ischemia Abnormal ECG Compared to ECG 02/14/2021 13:51:17 T-wave abnormality now present Possible ischemia now present Sinus tachycardia no longer present Atrial abnormality no longer present Electronically Signed On 11-06-21 08:57:09 CDT by Marco Robertson
== END 2021-11-03 22:56 | disposition home or self-care (01) ==
LOC: ER 20:17
DX: F14.10 Cocaine abuse, uncomplicated (principal); I10 Essential (primary) hypertension; Z91.013 Allergy to seafood
CPT/HCPCS: 93005; 85025; 80048; 36415; 82550; 81003; 84484; 80307; 71045; 96360; 99285; J7030

== ENCOUNTER 2024-02-16 07:47 | Emergency (ER) | payer OTHER ==
--- NOTE | 2024-02-16 08:39 | RAD REPORT ---
EXAM DESCRIPTION: RAD - Knee Right 3 View - 02/16/2024 8:30 am CLINICAL HISTORY: PAIN COMPARISON: No comparisons FINDINGS/IMPRESSION: No acute fracture. No malalignment. Mild medial compartment narrowing. Fragment ation at the tibial tubercle is likely chronic.
[2024-02-16] MEDS ORDERED: ONDANSETRON 4 MG/2 ML VIAL ONE (10:12)
[2024-02-16] MEDS ORDERED: KETOROLAC 30 MG/ML INJ ONE (10:12)
[2024-02-16] MEDS ORDERED: MORPHINE 4 MG/ML SYR ONE (10:13)
[2024-02-16] MEDS ORDERED: NA CHLORIDE 0.9% 1,000 ML ONE (10:13)
[2024-02-16] MEDS ORDERED: COLCHICINE 0.6 MG TAB ONE ×2 (10:13→11:48)
--- NOTE | 2024-02-16 10:20 | RAD REPORT ---
EXAM DESCRIPTION: US - Extremity Venous Uni Ltd - 02/16/2024 10:13 am CLINICAL HISTORY: Pain COMPARISON: None. TECHNIQUE: Real-time sonographic evaluation of the right lower extremity deep venous system was perf ormed. FINDINGS: Normal compressibility, flow augmentation, phasic flow and spontaneous flow is identified in the right lower extremity deep venous system. No intraluminal filling defects seen. IMPRESSION: No DVT in the right lower extremity.
[2024-02-16 10:23] LABS: Absolute Basophils 0.1 K/uL (0-0.5); Absolute Eosinophils 0.1 K/uL (0-0.5); Absolute Lymphocytes (CBC) 1.9 K/uL (0.7-4.9); Absolute Monocytes 0.5 K/uL (0.1-1.3); Absolute Neutrophil 4.1 K/uL (1.8-8.0); Basophils % 1.1 % (0-1.3); Eosinophils % 1.3 % (0-4.4); Hematocrit 43.8 % (39.6-49.0); Hemoglobin 13.9 g/dL (13.6-17.9); Lymphocytes % 28.6 % (15.3-44.8); MCH 26.7 pg (27.0-35.0); MCHC 31.8 g/dL (32.0-36.0); MPV 8.9 fL (7.6-11.3); Monocytes % 7.7 % (3.3-12.3); Neutrophils % 61.3 % (41.7-73.7); Nucleated Red Blood Cells % 0.2 % (0-0); Platelets 235 thou/uL (152-406); RBC Red Blood Cell Count 5.22 M/uL (4.33-5.43); Red Cell Distribution Width 15.7 % (12.1-15.2)
[2024-02-16 10:40] LABS: Albumin 3.6 g/dL (3.4-5.0); Albumin/Globulin Ratio 0.8 (1.1-1.8); Anion Gap 7.2 mEq/L (5.0-15.0); Bilirubin Total 0.6 mg/dL (0.2-1.0); Globulin 4.3 g/dL (2.3-3.5); Potassium 4.2 mEq/L (3.5-5.1); Protein, Total 7.9 g/dL (6.4-8.2)
--- NOTE | 2024-02-16 10:52 | ER ---
Nurse's Notes [facility] Name: Avila Marshall Age: 43 yrs Sex: Male : 1980 Arrival Date: 02/16/2024 Time: 07:47 Bed 20 Private MD: Diagnosis: Pain in right knee;Osteoarthritis of knee, unspecified Presentation: 02/15 08:29 Chief complaint: Worsening right knee pain and swelling x 1 week, swelling in right hb lower leg since yesterday. Coronavirus screen: At this time, the client does not indicate any symptoms associated with coronavirus-19. Ebola Screen: No symptoms or risks identified at this time. Initial Sepsis Screen: Does the patient meet any 2 criteria? No. Patient's initial sepsis screen is negative. Does the patient have a suspected source of infection? No. Patient's initial sepsis screen is negative. Risk Assessment: Do you want to hurt yourself or someone else? Patient reports no desire to harm self or others. Onset of symptoms was February 10, 2024. 08:29 Method Of Arrival: Ambulatory hb 08:29 Acuity: JORGE 3 hb Historical: - Allergies: 08:31 SHELLFISH; hb - Home Meds: 08:31 losartan 100 mg Oral tab [Active]; hb - PMHx: 08:31 Hypertensive disorder; hb - PSHx: 08:31 left shoulder; hb - Immunization history:: Adult Immunizations up to date. - Infectious Disease History:: Denies. - Social history:: Smoking status: Patient denies any tobacco usage or history of. Screenin:55 [facility] ED Fall Risk Assessment (Adult) History of falling in the last 3 months, aa5 including since admission No falls in past 3 months (0 pts) Confusion or Disorientation No (0 pts) Intoxicated or Sedated No (0 pts) Impaired Gait Yes (1 pt) Mobility Assist Device Used No (0 pt) Altered Elimination No (0 pt) Score/Fall Risk Level 0 - 2 = Low Risk Oriented to surroundings, Maintained a safe environment, Educated pt \T\ family on fall prevention, incl call for assistance when getting out of bed. Abuse screen: Denies threats or abuse. Nutritional screening: No deficits noted. Tuberculosis screening: No symptoms or risk factors identified. Assessment: 08:55 General: Appears comfortable, Behavior is calm, cooperative. Pain: Complains of pain in aa5 right knee. Neuro: Level of Consciousness is awake, alert, obeys commands, Oriented to person, place, time, situation. Cardiovascular: Patient's skin is warm and dry. Respiratory: Airway is patent Respiratory effort is even, unlabored, Respiratory pattern is regular, symmetrical. GI: No signs and/or symptoms were reported involving the gastrointestinal system. : No signs and/or symptoms were reported regarding the genitourinary system. EENT: No signs and/or symptoms were reported regarding the EENT system. Derm: Skin is dry, Skin is normal, Skin temperature is warm. Musculoskeletal: Reports pain in right knee and swelling to right knee. 10:20 Neuro: Level of Consciousness is awake, alert, obeys commands, Oriented to person, aa5 place, time, situation. Respiratory: Airway is patent Respiratory effort is even, unlabored, Respiratory pattern is regular, symmetrical. Derm: Skin is dry, Skin is normal, Skin temperature is warm. 11:50 Reassessment: Patient states feeling better. aa5 11:50 Neuro: Level of Consciousness is awake, alert, obeys commands, Oriented to person, aa5 place, time, situation. Respiratory: Airway is patent Respiratory effort is even, unlabored, Respiratory pattern is regular, symmetrical. Derm: Skin is dry, Skin is normal, Skin temperature is warm. 12:00 Reassessment: Patient is alert, oriented x 3, equal unlabored respirations, skin aa5 warm/dry/pink. Vital Signs: 08:29 BP 140 / 88; Pulse 80; Resp 16; Temp 98.3(O); Pulse Ox 100% on R/A; Weight 136.08 kg; hb Height 6 ft. 7 in. ; Pain 9/10; 10:15 BP 133 / 89; Pulse 83; Resp 21 S; Pulse Ox 99% on R/A; aa5 11:50 BP 133 / 87; Pulse 70; Resp 20 S; Pulse Ox 98% on R/A; aa5 08:29 Body Mass Index 33.80 (136.08 kg, 200.66 cm) hb 08:29 Pain Scale: Adult hb ED Course: 07:50 Patient arrived in ED. mg5 07:54 Jamison Gamez MD is Attending Physician. kathleen 08:31 Knee Right 3 View XRAY In Process Unspecified. EDMS 08:31 Triage completed. hb 08:32 Arm band placed on. hb 08:51 Zandra Mcneal, RN is Primary Nurse. aa5 08:55 Patient has correct armband on for positive identification. Bed in low position. Call aa5 light in reach. Side rails up X 1. 10:14 Inserted saline lock: 20 gauge in right antecubital area, using aseptic technique. go2 10:15 US Extremity Venous Unilateral Ltd In Process Unspecified. EDMS 10:50 Kendrick Ramírez MD is Referral Physician. [facility] 12:00 No provider procedures requiring assistance completed. IV discontinued, intact, aa5 bleeding controlled, No redness/swelling at site. Pressure dressing applied. 12:00 Knee immobilizer applied on right knee. aa5 Administered Medications: 10:18 Drug: Ondansetron IVP 4 mg IVP once; over 2 minutes Route: IVP; Site: right antecubital;aa5 11:50 Follow up: Response: No adverse reaction aa5 10:20 Drug: Colcrys PO 1.2 mg PO once Route: PO; aa5 11:50 Follow up: Response: No adverse reaction aa5 10:20 Drug: morphine IVP or IV 4 mg IVP once over 4 mins Route: IVP; Infused Over: 4 mins; aa5 Site: right antecubital; 10:30 Follow up: Response: No adverse reaction aa5 10:22 Drug: NS 0.9% IV 1000 ml IV at 1 bolus Per protocol; 1000 mL bolus Route: IV; Rate: 1 aa5 bolus; Site: right antecubital; 11:50 Follow up: IV Status: Completed infusion; IV Intake: 1000ml aa5 10:22 Drug: Ketorolac IVP 30 mg IVP once Route: IVP; Site: right antecubital; aa5 10:30 Follow up: Response: No adverse reaction aa5 11:50 Drug: Colcrys PO 0.6 mg PO once; one hour after 1.2 dose Route: PO; aa5 12:00 Follow up: Response: No adverse reaction aa5 Medication: 09:41 VIS not applicable for this client. aa5 Intake: 11:50 IV: 1000ml; Total: 1000ml. aa5 Outcome: 10:52 Discharge ordered by . [facility] 12:00 Discharged to home ambulatory, aa5 12:00 Condition: improved 12:00 Discharge instructions given to patient, Instructed on discharge instructions, follow up and referral plans. medication usage, Demonstrated understanding of instructions, follow-up care, medications, Prescriptions given X 3, 12:08 Patient left the ED. aa5 Signatures: Dispatcher [employer] EDJamison Newsome MD MD cha Calderon, Audri, RN RN aa5 Mickie Last RN RN Shahla Smith mg5 Dee Dee Pinto RN RN go2 Corrections: (The following items were deleted from the chart) 10:38 10:37 Allergies: dust; go2 go2 10:38 10:37 PMHx: Headache; go2 go2 10:41 08:55 General: Appears comfortable, Behavior is calm, cooperative, aa5 go2 13:09 10:30 Response: No adverse reaction aa5 aa5
--- NOTE | 2024-02-16 10:52 | EDPHYS ---
Physician Documentation [facility] Name: Avila Marshall Age: 43 yrs Sex: Male : 1980 Arrival Date: 02/16/2024 Time: 07:47 Bed 20 Private MD: ED Physician Jamison Gamez HPI: 02/15 10:43 This 43 yrs old Black Male presents to ER via Ambulatory with complaints of Knee Pain. kathleen 10:43 The patient presents with decreased range of motion, pain, that is acute. The kathleen complaints affect the right knee. Context: resulted from an unknown cause, the patient can partially bear weight, the patient is not able to ambulate. Onset: The symptoms/episode began/occurred 5 day(s) ago. Modifying factors: The symptoms are alleviated by elevating leg, remaining still, the symptoms are aggravated by movement, bending knee. Associated signs and symptoms: The patient has no apparent associated signs or symptoms. Severity of symptoms: At their worst the symptoms were moderate, in the emergency department the symptoms are unchanged. The patient has experienced similar episodes in the past, several times. Historical: - Allergies: 08:31 SHELLFISH; hb - Home Meds: 08:31 losartan 100 mg Oral tab [Active]; hb - PMHx: 08:31 Hypertensive disorder; hb - PSHx: 08:31 left shoulder; hb - Immunization history:: Adult Immunizations up to date. - Infectious Disease History:: Denies. - Social history:: Smoking status: Patient denies any tobacco usage or history of. ROS: 10:43 Constitutional: Negative for fever, chills, and weight loss, Eyes: Negative for injury, kathleen pain, redness, and discharge, ENT: Negative for injury, pain, and discharge, Neck: Negative for injury, pain, and swelling, Cardiovascular: Negative for chest pain, palpitations, and edema, Respiratory: Negative for shortness of breath, cough, wheezing, and pleuritic chest pain, Abdomen/GI: Negative for abdominal pain, nausea, vomiting, diarrhea, and constipation, Back: Negative for injury and pain, : Negative for injury, bleeding, discharge, and swelling, Skin: Negative for injury, rash, and discoloration, Neuro: Negative for headache, weakness, numbness, tingling, and seizure, Psych: Negative for depression, anxiety, suicide ideation, homicidal ideation, and hallucinations, Allergy/Immunology: Negative for hives, rash, and allergies, Endocrine: Negative for neck swelling, polydipsia, polyuria, polyphagia, and marked weight changes, Hematologic/Lymphatic: Negative for swollen nodes, abnormal bleeding, and unusual bruising, 10:43 : Positive for 10:43 MS/extremity: Positive for injury or acute deformity, decreased range of motion, pain, tenderness, of the right knee, Exam: 10:43 Constitutional: This is a well developed, well nourished patient who is awake, alert, kathlene and in no acute distress. Head/Face: Normocephalic, atraumatic. Eyes: Pupils equal round and reactive to light, extra-ocular motions intact. Lids and lashes normal. Conjunctiva and sclera are non-icteric and not injected. Cornea within normal limits. Periorbital areas with no swelling, redness, or edema. ENT: Nares patent. No nasal discharge, no septal abnormalities noted. Tympanic membranes are normal and external auditory canals are clear. Oropharynx with no redness, swelling, or masses, exudates, or evidence of obstruction, uvula midline. Mucous membranes moist. Neck: Trachea midline, no thyromegaly or masses palpated, and no cervical lymphadenopathy. Supple, full range of motion without nuchal rigidity, or vertebral point tenderness. No Meningismus. Chest/axilla: Normal chest wall appearance and motion. Nontender with no deformity. No lesions are appreciated. Cardiovascular: Regular rate and rhythm with a normal S1 and S2. No gallops, murmurs, or rubs. Normal PMI, no JVD. No pulse deficits. Respiratory: Lungs have equal breath sounds bilaterally, clear to auscultation and percussion. No rales, rhonchi or wheezes noted. No increased work of breathing, no retractions or nasal flaring. Abdomen/GI: Soft, non-tender, with normal bowel sounds. No distension or tympany. No guarding or rebound. No evidence of tenderness throughout. Back: No spinal tenderness. No costovertebral tenderness. Full range of motion. Male : Normal genitalia with no discharge or lesions. Skin: Warm, dry with normal turgor. Normal color with no rashes, no lesions, and no evidence of cellulitis. Neuro: Awake and alert, GCS 15, oriented to person, place, time, and situation. Cranial nerves II-XII grossly intact. Motor strength 5/5 in all extremities. Sensory grossly intact. Cerebellar exam normal. Normal gait. Psych: Awake, alert, with orientation to person, place and time. Behavior, mood, and affect are within normal limits. 10:43 Musculoskeletal/extremity: Extremities: grossly normal except: noted in the right leg and right knee: decreased ROM, pain, swelling, tenderness, Vital Signs: 08:29 BP 140 / 88; Pulse 80; Resp 16; Temp 98.3(O); Pulse Ox 100% on R/A; Weight 136.08 kg; hb Height 6 ft. 7 in. ; Pain 9/10; 10:15 BP 133 / 89; Pulse 83; Resp 21 S; Pulse Ox 99% on R/A; aa5 11:50 BP 133 / 87; Pulse 70; Resp 20 S; Pulse Ox 98% on R/A; aa5 08:29 Body Mass Index 33.80 (136.08 kg, 200.66 cm) hb 08:29 Pain Scale: Adult hb MDM: 07:54 Patient medically screened. kathleen 10:47 Differential diagnosis: closed fracture, contusion, abrasion, tendonitis. Data kathleen reviewed: vital signs, nurses notes, lab test result(s), radiologic studies, plain films. Consideration of Admission/Observation Escalation of care including admission/observation considered. I considered the following discharge prescriptions or medication management in the emergency department Medications were administered in the Emergency Department. See MAR. Independent interpretation of the following test(s) in the Emergency Department X-Ray: My interpretation is xray neg. Test considered but Not performed: X-ray: right knee. Historians other than the Patient: pt well informed. Care significantly affected by the following chronic conditions: Hypertension. Counseling: I had a detailed discussion with the patient and/or guardian regarding the historical points, exam findings, and any diagnostic results supporting the discharge/admit diagnosis, lab results, radiology results, the need for outpatient follow up, for definitive care, a family practitioner, a orthopedic surgeon. 02/15 09:44 Order name: CBC with Diff kathleen 02/15 09:44 Order name: Comprehensive Metabolic Panel; Complete Time: 10:40 kathleen 02/15 09:44 Order name: Uric Acid; Complete Time: 10:40 [facility] 02/15 11:16 Order name: CBC Smear Scan EDMS 02/15 07:54 Order name: Knee Right 3 View XRAY; Complete Time: 10:40 kathleen 02/15 09:44 Order name: US Extremity Venous Unilateral Ltd; Complete Time: 10:40 kathleen 02/15 09:45 Order name: Knee Immobilizer; Complete Time: 12:01 kathleen Administered Medications: 10:18 Drug: Ondansetron IVP 4 mg IVP once; over 2 minutes Route: IVP; Site: right antecubital;aa5 11:50 Follow up: Response: No adverse reaction aa5 10:20 Drug: Colcrys PO 1.2 mg PO once Route: PO; aa5 11:50 Follow up: Response: No adverse reaction aa5 10:20 Drug: morphine IVP or IV 4 mg IVP once over 4 mins Route: IVP; Infused Over: 4 mins; aa5 Site: right antecubital; 10:30 Follow up: Response: No adverse reaction aa5 10:22 Drug: NS 0.9% IV 1000 ml IV at 1 bolus Per protocol; 1000 mL bolus Route: IV; Rate: 1 aa5 bolus; Site: right antecubital; 11:50 Follow up: IV Status: Completed infusion; IV Intake: 1000ml aa5 10:22 Drug: Ketorolac IVP 30 mg IVP once Route: IVP; Site: right antecubital; aa5 10:30 Follow up: Response: No adverse reaction aa5 11:50 Drug: Colcrys PO 0.6 mg PO once; one hour after 1.2 dose Route: PO; aa5 12:00 Follow up: Response: No adverse reaction aa5 Disposition Summary: 02/16/24 10:52 Discharge Ordered Notes: Location: Home kathleen Problem: new kathleen Symptoms: have improved kathleen Condition: Stable kathleen Diagnosis - Pain in right knee kathleen - Osteoarthritis of knee, unspecified kathleen Followup: kathleen - With: Private Physician - When: 2 - 3 days - Reason: Recheck today's complaints, Re-evaluation by your physician Followup: kathleen - With: Kendrick Ramírez MD - When: 2 - 3 days - Reason: Recheck today's complaints, Re-evaluation by your physician Discharge Instructions: - Discharge Summary Sheet kathleen - Joint Pain kathleen - Arthritis kathleen - How to Use a Knee Brace kathleen - Musculoskeletal Pain kathleen - Osteoarthritis kathleen - RICE Therapy for Routine Care of Injuries, Tfyk-gp-Fecp kathleen - Acute Knee Pain, Adult, Rdxf-ig-Ubag [facility] Forms: - Medication Reconciliation Form kathleen - Antibiotic Education kathleen - Prescription Opioid Use kathleen - Patient Portal Instructions kathleen - Leadership Thank You Letter kathleen - Work release form eb Prescriptions: - acetaminophen-codeine 300-30 mg Oral tablet - take 2 tablet ORAL route every 6 hours; 20 tablet; Refills: 0, Product kathleen Selection Permitted - colchicine 0.6 mg Oral tablet - take 2 tablet ORAL route once repeat 0.6 mg dose 1 hour after 1.2 mg dose, max kathleen 3 tabs daily; 15 tablet; Refills: 0, Product Selection Permitted - Diclofenac Sodium 75 mg Oral tablet, delayed release (enteric coated) - take 1 tablet ORAL route 2 times per day; 20 tablet; Refills: 0, Product kathleen Selection Permitted Signatures: Dispatcher [employer] Jamison Castro MD MD cha Calderon, Audri, RN RN aa5 Mickie Last RN RN Dee Dee Pinto RN RN go2 Corrections: (The following items were deleted from the chart) 10:38 10:37 Allergies: dust; go2 go2 10:38 10:37 PMHx: Headache; go2 go2 12:02 09:45 Crutches ordered. kathleen aa5
[2024-02-16 11:15] LABS: Blood Morphology Comment NOT SEEN (NOT SEEN); Platelet Estimate ADEQ; White Blood Cell Scan OK (OK)
[2024-02-16 12:17] VITALS: BP 140/88; TEMP 98.3; O2SAT 100
--- OUTSIDE RECORDS SUMMARY | 2024-02-18 12:15 | XMS REPORT | Continuity of Care Document ---
Author Name Unknown Address [address] [facility] [address] [facility] [facility] [address] [place] [address] [facility] thconnect Address [address] [place] [address] Care Team Providers Care Fabric Worker Name Role Phone [facility] Care Physician Unavailable KLAUS HESS Attending Clinician Unavailable Klaus Hess DO Attending Clinician KLAUS HESS Admitting Clinician Unavailable Payers Payer Name Policy Type Policy Number Effective Date Expirati on Date Source CIGNA II [id number] 2022 00:00:00 [facility] STAR [id number] 2022 00:00:00 Allergies, Adverse Reactions, Alerts Allergy Name Allergy Type Status Severity Reaction(s) Onset Date Inactive Date Treating Clinician Comments Source NO KNOWN ALLERGIE S Drug Class Active [facility] Social History Social Habit Start Date Stop Date Quantity Comments Source Exposure to SARS-CoV-2 (event) 2022-09-05 00:00:00 2022-09-15 19:40:00 Not sure [facility] Sex Assigned At 1980 00:00:00 1980 00:[birth year]:00 [facility] Smoking Status Start Date Stop Date Source Tobacco smoking consumption unknown [facility] Vital Signs Vital Name Observation Time Observation Value Comments Anais guadalupe Systolic blood pressure 2022-09-16 02:02:00 122 mm[Hg] [facility] Diastolic blood pressure 2022-09-16 02:02:00 74 mm[Hg] [place] o [facility] Heart rate 2022-09-16 02:02:00 93 /min [facility] Respiratory rate 2022-09-16 02:02:00 17 /min [facility] Oxygen saturation in Arterial blood by Pulse oximetry 2022-09-16 02:02:00 99 /min [place] [facility] Body temperature 2022-09-16 00:40:00 36.61 Myrna [facility] Body height 2022-09-16 00:40:00 200.7 cm [facility] Body weight 2022-09-16 00:40:00 135.172 kg [facility] BMI 2022-09-16 00:40:00 33.57 kg/m2 [facility] Procedures Procedure Date / Time Performed Performing Clinicia n Source XR CHEST 1 VW 2022-09-16 01:06:56 Klaus Hess [facility] TROPONIN I 2022-09-16 00:58:00 Klaus Hess [facility] COMP. METABOLIC PANEL (60482) 2022-09-16 00:58:00 Klaus Hess [facility] CBC WITH DIFF 2022-09-16 00:58:00 Klaus Hess [facility] N-TERMINAL PRO-BNP 2022-09-16 00:58:00 Klaus Hess [facility] NOTICE OF PRIVACY PRACTICES 2022-09-16 00:25:24 Doctor Unassigned, [place] [facility] CONSENT/REFUSAL FOR DIAGNOSIS AND TREATMENT 2022-09-16 00:25:03 Doctor Unassigned, [place] [facility] Encounters Start Date/Time End Date/Time Encounter Type Admission Type Attending Clinicians Care Facility Care Department Encounter ID Source 2023-07-18 17:45:40 2023-07-18 17:45:40 Outpatient SFA [facility] [id number] Ismael Eisenberg 2022-09-15 19:43:00 2022-09-15 22:11:00 Emergency X KLAUS HESS [facility] ERT [id number] [facility] 2022-09-15 19:43:00 2022-09-15 22:11:00 Emergency Hess, Lkaus [facility] [id number] [facility] 2022-07-12 08:03:53 2022-07-12 08:03:53 Outpatient SFA SFA 0112 Ismael Eisenberg Results Test Description Test Time Test Comments Results Result Co mments Source [facility] [id number] 02:15:15* Test Item Value Reference Range Interpretation Comme nts NT-proBNP (test code = 7544464599) 22 pg/mL <=125 UMBERTO (test code = UMBERTO) Biotin has been reported to cause a negative bias, interpret results relative to patient's use of biotin. Lab Interpretation (test code = 08825-2) Normal [facility] [id number] 02:15:15* Test Item Value Reference Range Interpretation Comme nts TROPONIN I (test code = 1039096254) 0.006 ng/mL <=0.034 UMBERTO (test code = UMBERTO) Reference (Normal) Range (defined by the 99th percentile reference limit): <= 0.034 ng/mL Note: Cardiac troponin begins to rise 3-4 hours after the onset of ischemia. Repeat in 4-6 hours if the sample was drawn within 3-4 hours of the onset of the symptom and found normal. Diagnosis of myocardial injury is made with acute changes in cTn concentrations with at least one serial sample above the 99th percentile upper reference limit (URL), taken together with the patient's clinical presentation. Biotin has been reported to cause a negative bias, interpret results relative to patient's use of biotin. Lab Interpretation (test code = 62192-5) Normal [facility] WITH [id number] 01:13:13* Test Item Value Reference Range Interpretation Comme nts WBC (test code = 6690-2) 6.33 See_Comment [Automated [employer] ge] The system which generated this result transmitted reference range: 4.20 - 10.70 10*3/?L. The reference range was not used to interpret this result as normal/abnormal. RBC (test code = 789-8) 5.83 See_Comment H [Automated messa ge] The system which generated this result transmitted reference range: 4.26 - 5.52 10*6/?L. The reference range was not used to interpret this result as normal/abnormal. HGB (test code = 718-7) 15.8 g/dL 12.2-16.4 HCT (test code = 4544-3) 48.5 % 38.4-49.3 MCV (test code = 787-2) 83.2 fL 81.7-95.6 MCH (test code = 785-6) 27.1 pg 26.1-32.7 MCHC (test code = 786-4) 32.6 g/dL 31.2-35.0 RDW-SD (test code = 20253-6) 46.1 fL 38.5-51.6 RDW-CV (test code = 788-0) 15.3 % 12.1-15.4 PLT (test code = 777-3) 252 See_Comment [Automated messa ge] The system which generated this result transmitted reference range: 150 - 328 10*3/?L. The reference range was not used to interpret this result as normal/abnormal. MPV (test code = 44429-2) 10.7 fL 9.8-13.0 NRBC/100 WBC (test code = 1712593853) 0.0 See_Comment [Automated [employer] ssage] The system which generated this result transmitted reference range: 0.0 - 10.0 /100 WBCs. The reference range was not used to interpret this result as normal/abnormal. NRBC x10^3 (test code = 7645638426) See_Comment [Automated messa ge] The system which generated this result transmitted reference range: 10*3/?L. The reference range was not used to interpret this result as normal/abnormal. GRAN MAT (NEUT) % (test code = 770-8) 54.8 % IMM GRAN % (test code = 2419543407) 0.30 % LYMPH % (test code = 736-9) 34.0 % MONO % (test code = 5905-5) 9.3 % EOS % (test code = 713-8) 1.3 % BASO % (test code = 706-2) 0.3 % GRAN MAT x10^3(ANC) (test code = 1192542354) 3.47 10*3/uL 1.99-6.95 IMM GRAN x10^3 (test code = 2206147143) 0.00-0.06 LYMPH x10^3 (test code = 731-0) 2.15 10*3/uL 1.09-3.23 MONO x10^3 (test code = 742-7) 0.59 10*3/uL 0.36-1.02 EOS x10^3 (test code = 711-2) 0.08 10*3/uL 0.06-0.53 BASO x10^3 (test code = 704-7) 0.01-0.09 Lab Interpretation (test code = 99899-7) Abnormal [facility]
== END 2024-02-16 12:08 | disposition home or self-care (01) ==
LOC: ER 07:47
DX: M17.11 Unilateral primary osteoarthritis, right knee (principal)
CPT/HCPCS: 96361; 85025; 36415; 84550; 80053; 73562; 93971; 96375; 96374; 99284; J2405; J7030

== ENCOUNTER 2024-06-20 15:26 | Emergency (ER) | payer OTHER ==
--- OUTSIDE RECORDS SUMMARY | 2024-06-20 15:28 | XMS REPORT | Continuity of Care Document ---
Author Name Unknown Address [address] [facility] [address] [place] [address] [facility] thconnect Address [address] [facility] [place] [address] Care Team Providers Care Metal Solderer Name Role Phone [facility] Care Physician Unavailable KLAUS HESS Attending Clinician Unavailable Klaus Hess DO Attending Clinician KLAUS HESS Admitting Clinician Unavailable Payers Payer Name Policy Type Policy Number Effective Date Expirati on Date Source CIGNA II [id number] 2022 00:00:00 [facility] STAR [id number] 2022 00:00:00 Allergies, Adverse Reactions, Alerts Allergy Name Allergy Type Status Severity Reaction(s) Onset Date Inactive Date Treating Clinician Comments Source NO KNOWN ALLERGIE S Drug Class Active [facility] Social History Social Habit Start Date Stop Date Quantity Comments Source Exposure to SARS-CoV-2 (event) 2022-09-05 00:00:00 2022-09-15 19:40:00 Not sure [facility] Sex Assigned At 1980 00:00:00 1980 00:00:00 [facility] Smoking Status Start Date Stop Date Source Tobacco smoking consumption unknown [facility] Vital Signs Vital Name Observation Time Observation Value Comments Anais guadalupe Systolic blood pressure 2022-09-16 02:02:00 122 mm[Hg] [facility] Diastolic blood pressure 2022-09-16 02:02:00 74 mm[Hg] [place] o [facility] Heart rate 2022-09-16 02:02:00 93 /min [facility] Respiratory rate 2022-09-16 02:02:00 17 /min [facility] Oxygen saturation in Arterial blood by Pulse oximetry 2022-09-16 02:02:00 99 /min [place] o [facility] Body temperature 2022-09-16 00:40:00 36.61 Myrna [facility] Body height 2022-09-16 00:40:00 200.7 cm [facility] Body weight 2022-09-16 00:40:00 135.172 kg [facility] BMI 2022-09-16 00:40:00 33.57 kg/m2 [facility] Procedures Procedure Date / Time Performed Performing Clinicia n Source XR CHEST 1 VW 2022-09-16 01:06:56 Klaus Hess [facility] TROPONIN I 2022-09-16 00:58:00 Klaus Hess [facility] COMP. METABOLIC PANEL (39531) 2022-09-16 00:58:00 Klaus Hess [facility] CBC WITH DIFF 2022-09-16 00:58:00 Klaus Hess [facility] N-TERMINAL PRO-BNP 2022-09-16 00:58:00 Klaus Hess [facility] NOTICE OF PRIVACY PRACTICES 2022-09-16 00:25:24 Doctor Unassigned, [place] [facility] CONSENT/REFUSAL FOR DIAGNOSIS AND TREATMENT 2022-09-16 00:25:03 Doctor Unassigned, [place] [facility] Encounters Start Date/Time End Date/Time Encounter Type Admission Type Attending Clinicians Care Facility Care Department Encounter ID Source 2023-07-18 17:45:40 2023-07-18 17:45:[address] [facility] [id number] Ismael Eisenberg 2022-09-15 19:43:00 2022-09-15 22:11:00 Emergency X KLAUS HESS [facility] ERT [id number] [facility] 2022-09-15 19:43:00 2022-09-15 22:11:00 Emergency Hess, Klaus [facility] [id number] [facility] 2022-07-12 08:03:53 2022-07-12 08:03:53 Outpatient SFA SFA 0112 Ismael Eisenberg Results Test Description Test Time Test Comments Results Result Co mments Source [facility] [id number] 02:15:15* Test Item Value Reference Range Interpretation Comme nts NT-proBNP (test code = 4648412546) 22 pg/mL <=125 UMBERTO (test code = UMBERTO) Biotin has been reported to cause a negative bias, interpret results relative to patient's use of biotin. Lab Interpretation (test code = 43394-6) Normal [facility] [id number] 02:15:15* Test Item Value Reference Range Interpretation Comme nts TROPONIN I (test code = 1645209377) 0.006 ng/mL <=0.034 UMBERTO (test code = [...] of biotin. Lab Interpretation (test code = 46541-3) Normal [facility] WITH [id number] 01:13:13* Test Item Value Reference Range Interpretation Comme nts WBC (test code = 6690-2) 6.33 See_Comment [Automated [employer] ge] The system which generated this result [...] 32.6 g/dL 31.2-35.0 RDW-SD (test code = 06308-9) 46.1 fL 38.5-51.6 RDW-CV (test code = 788-0) 15.3 % 12.1-15.4 PLT (test code = 777-3) 252 See_Comment [Automated messa ge] The system which generated this result transmitted reference range: 150 - 328 10*3/?L. The reference range was not used to interpret this result as normal/abnormal. MPV (test code = 52640-7) 10.7 fL 9.8-13.0 NRBC/100 WBC (test code = 2237284486) 0.0 See_Comment [Automated [employer] ssage] The system which generated this result transmitted reference range: 0.0 - 10.0 /100 WBCs. The reference range was not used to interpret this result as normal/abnormal. NRBC x10^3 (test code = 6935228034) See_Comment [Automated messa ge] The system which generated this result transmitted reference range: 10*3/?L. The reference range was not used to interpret this result as normal/abnormal. GRAN MAT (NEUT) % (test code = 770-8) 54.8 % IMM GRAN % (test code = 9073131211) 0.30 % LYMPH % (test code = 736-9) 34.0 % MONO % (test code = 5905-5) 9.3 % EOS % (test code = 713-8) 1.3 % BASO % (test code = 706-2) 0.3 % GRAN MAT x10^3(ANC) (test code = 5929598262) 3.47 10*3/uL 1.99-6.95 IMM GRAN x10^3 (test code = 5991831887) 0.00-0.06 LYMPH x10^3 (test code = 731-0) 2.15 10*3/uL 1.09-3.23 MONO x10^3 (test code = 742-7) 0.59 10*3/uL 0.36-1.02 EOS x10^3 (test code = 711-2) 0.08 10*3/uL 0.06-0.53 BASO x10^3 (test code = 704-7) 0.01-0.09 Lab Interpretation (test code = 04811-0) Abnormal [facility]
--- NOTE | 2024-06-20 16:07 | RAD REPORT ---
EXAM: Chest Pa And Lat (2 Views) HISTORY: Congestion;Cough COMPARISON: 04/04/22 FINDINGS: LUNGS/PLEURA: The lungs are clear. No pleural effusions or pneumothorax. No pulmonary edema. MEDIASTINUM: The mediastinal silhouette is within normal limits. CARDIAC: The cardiac silhouette is within normal limits. UPPER ABDOMEN: No significant abnormality. BONES: No acute fracture. LINES/TUBES/OTHER: N/A IMPRESSION: No evidence of acute cardiopulmonary disease.
[2024-06-20 16:44] LABS: SARS-CoV-2 Antigen CONTROL BLUE LINE VIS/BG OK; SARS-CoV-2 Antigen Rapid Res Negative (Negative)
--- NOTE | 2024-06-20 16:48 | ER ---
Nurse's Notes [facility] Name: Avila Marshall Age: 44 yrs Sex: Male : 1980 Arrival Date: 06/20/2024 Time: 15:26 Bed 11 Private MD: Diagnosis: Influenza due to identified novel influenza A virus Presentation: 06/20 15:36 Chief complaint: Patient states: last night i started coughing, today I have chills and iw body aches , runny nose. Coronavirus screen: Client presents with at least one sign or symptom that may indicate coronavirus-19. Ebola Screen: No symptoms or risks identified at this time. Initial Sepsis Screen: Does the patient meet any 2 criteria? No. Patient's initial sepsis screen is negative. Does the patient have a suspected source of infection? No. Patient's initial sepsis screen is negative. Risk Assessment: Do you want to hurt yourself or someone else? Patient reports no desire to harm self or others. Onset of symptoms was June 19, 2024. 15:36 Method Of Arrival: Ambulatory iw 15:36 Acuity: JORGE 4 iw Triage Assessment: 15:50 General: Appears in no apparent distress. Behavior is calm, cooperative, appropriate iw for age. Historical: - Allergies: 15:37 SHELLFISH; iw - PMHx: 15:37 Hypertensive disorder; iw - PSHx: 15:37 left shoulder; iw - Immunization history:: Adult Immunizations not up to date. - Infectious Disease History:: Denies. - Social history:: Smoking status: Patient reports the use of cigarette tobacco products, denies chronic smoking, but will smoke occasionally. Screenin:11 [facility] [place] ED Fall Risk Assessment (Adult) History of falling in the last 3 months, iw including since admission No falls in past 3 months (0 pts) Confusion or Disorientation No (0 pts) Intoxicated or Sedated No (0 pts) Impaired Gait No (0 pts) Mobility Assist Device Used No (0 pt) Altered Elimination No (0 pt) Score/Fall Risk Level 0 - 2 = Low Risk Oriented to surroundings, Maintained a safe environment. Abuse screen: Denies threats or abuse. Denies injuries from another. Nutritional screening: No deficits noted. Tuberculosis screening: No symptoms or risk factors identified. Assessment: 15:50 General: Appears in no apparent distress. Behavior is calm, cooperative. General: iw Reports chills for fever for feeling ill for fatigue for. Pain: Complains of pain in head. Neuro: Level of Consciousness is awake, alert, obeys commands, Oriented to person, place, time, situation, Moves all extremities. Cardiovascular: Patient's skin is warm and dry. Respiratory: Respiratory effort is even, unlabored, Respiratory pattern is regular. Derm: Skin is intact, is healthy with good turgor. Musculoskeletal: Range of motion: intact in all extremities. Vital Signs: 15:36 BP 142 / 81; Pulse 98; Resp 18; Temp 98.7; Pulse Ox 99% ; Weight 135.17 kg; Height 6 iw ft. 7 in. ; 15:36 Body Mass Index 33.57 (135.17 kg, 200.66 cm) iw ED Course: 15:29 Patient arrived in ED. ra3 15:29 Flora Willis PA-C is PHCP. sb4 15:29 Jamison Gamez MD is Attending Physician. sb4 15:37 Triage completed. iw 15:37 Arm band placed on. iw 16:02 Chest Pa And Lat (2 Views) XRAY In Process Unspecified. EDMS 16:45 Charo Mosher, RN is Primary Nurse. iw 17:11 No provider procedures requiring assistance completed. Patient did not have IV access iw during this emergency room visit. Administered Medications: No medications were administered Medication: 15:50 VIS not applicable for this client. iw Outcome: 16:48 Discharge ordered by MD. sb4 17:11 Discharged to home ambulatory, iw 17:11 Condition: good 17:11 Discharge instructions given to patient, Instructed on discharge instructions, follow up and referral plans. Demonstrated understanding of instructions, follow-up care, medications, Prescriptions given X 1, 17:12 Patient left the ED. iw Signatures: Dispatcher [employer] EDMS Charo Mosher RN RN iw Flora Willis PA-C PA-C sb4 Alice John ra3 Corrections: (The following items were deleted from the chart) 15:37 15:36 Pulse 98bpm; Resp 18bpm; Pulse Ox 99%; Temp 98.7F; 135.17 kg; Height 6 ft. 7 in.; iw BMI: 33.5; iw
--- NOTE | 2024-06-20 16:49 | EDPHYS ---
Physician Documentation [facility] Name: Avila Marshall Age: 44 yrs Sex: Male : 1980 Arrival Date: 06/20/2024 Time: 15:26 Bed 11 Private MD: ED Physician Jamison Gamez HPI: 06/20 15:51 This 44 yrs old Black Male presents to ER via Ambulatory with complaints of flu sb4 symptoms. 15:52 cough, congestion, body aches x 24 hours. no chest pain or shortness of breath. sb4 endorses diarrhea. denies any nausea or vomiting. is otherwise healthy. Historical: - Allergies: 15:37 SHELLFISH; iw - PMHx: 15:37 Hypertensive disorder; iw - PSHx: 15:37 left shoulder; iw - Immunization history:: Adult Immunizations not up to date. - Infectious Disease History:: Denies. - Social history:: Smoking status: Patient reports the use of cigarette tobacco products, denies chronic smoking, but will smoke occasionally. ROS: 15:52 Constitutional: Positive for body aches, fatigue, malaise, sb4 15:52 ENT: Positive for rhinorrhea, sinus congestion, 15:52 Respiratory: Positive for cough, 15:55 All other systems are negative, sb4 Exam: 15:55 Head/Face: Normocephalic, atraumatic. Eyes: Extra-ocular motions intact. Periorbital sb4 areas with no swelling, redness, or edema. ENT: Mucous membranes moist. Cardiovascular: Regular rate and rhythm with a normal S1 and S2. Respiratory: No increased work of breathing, no retractions or nasal flaring. Abdomen/GI: Soft, non-tender, no distension. Skin: Warm, dry with normal turgor. Normal color with no rashes, no lesions, and no evidence of cellulitis. 15:55 Constitutional: The patient appears alert, awake, obviously ill, Vital Signs: 15:36 BP 142 / 81; Pulse 98; Resp 18; Temp 98.7; Pulse Ox 99% ; Weight 135.17 kg; Height 6 iw ft. 7 in. ; 15:36 Body Mass Index 33.57 (135.17 kg, 200.66 cm) iw MDM: 15:39 Medical Screening Exam initiated sb4 16:47 Data reviewed: vital signs, nurses notes, lab test result(s), radiologic studies, and sb4 as a result, I will discharge patient. Counseling: I had a detailed discussion with the patient and/or guardian regarding the historical points, exam findings, and any diagnostic results supporting the discharge/admit diagnosis, lab results, radiology results, the need for outpatient follow up, for definitive care, to return to the emergency department if symptoms worsen or persist or if there are any questions or concerns that arise at home. 06/20 15:47 Order name: SARS RAPID; Complete Time: 16:45 sb4 06/20 15:47 Order name: Flu; Complete Time: 16:45 sb4 06/20 15:47 Order name: Strep sb4 06/20 16:48 Order name: Throat Culture EDMS 06/20 15:47 Order name: Chest Pa And Lat (2 Views) XRAY; Complete Time: 16:08 sb4 Administered Medications: No medications were administered Disposition: 16:48 Chart complete. sb4 Disposition Summary: 06/20/24 16:48 Discharge Ordered Notes: Location: Home sb4 Problem: new sb4 Symptoms: have improved sb4 Condition: Stable sb4 Diagnosis - Influenza due to identified novel influenza A virus sb4 Followup: sb4 - With: Emergency Department - When: As needed - Reason: Trouble breathing, Worsening of condition Discharge Instructions: - Discharge Summary Sheet sb4 - Influenza, Adult, [id number] sb4 Forms: - Work release form iw - Antibiotic Education sb4 - Patient Portal Instructions sb4 - Leadership Thank You Letter sb4 Prescriptions: - Tamiflu 75 mg Oral capsule - take 1 tablet ORAL route every 12 hours for 5 days; 10 tablet; Refills: 0, sb4 Product Selection Permitted Addendum: 06/25/2024 12:47 Co-signature as Attending Physician, Jamison Gamez MD I agree with the assessment and c cisneros plan of care. Signatures: Dispatcher [employer] Jamison Castro MD MD cha Williams, Irene, RN RN Flora Talley PA-C PA-C sb4
[2024-06-20 17:50] VITALS: BP 142/81; TEMP 98.7; O2SAT 99
== END 2024-06-20 17:12 | disposition home or self-care (01) ==
LOC: ER 15:26
DX: J10.1 Influenza due to other identified influenza virus with other respiratory manifestations (principal); Z11.52 Encounter for screening for COVID-19; F17.210 Nicotine dependence, cigarettes, uncomplicated
CPT/HCPCS: 36415; 71046; 87070; 87081; 87804; 87811; 99283